=== PATIENT | male | born 1955 | race Caucasian/White ===

== ENCOUNTER 2024-06-10 07:43 | Inpatient (IN) | payer MEDICARE, MEDICAID, SELFPAY ==
[2024-06-10] VITALS (23 sets, daily range): BP systolic 117–145; BP diastolic 42–74; PULSE 69–105; RESP 11–20; TEMP 36.6–36.9; O2SAT 94–100; BMI 32.4
--- NOTE | ~2024-06-10 | CT_ITS ---
EXAMINATION: CT chest abdomen pelvis w con DATE: 06/10/2024 10:08 INDICATION: Abdominal pain. Abnormal chest radiograph. TECHNIQUE: Computed tomography (CT) of the chest, abdomen, and pelvis was performed without intraveno us contrast. Automated exposure control and iterative reconstruction technique were employed. The dos e-length product was 701.48 mGy-cm. COMPARISON: Chest single view 06/10/2024 FINDINGS: CHEST CT: There is mild emphysema. There is mild atelectasis in the lungs. No pleural effusion. The heart size is normal. There are coronary artery calcifications. No pericardial effusion. There is ectasia of asc ending aorta measuring 4.9 cm. There is severe cervical spondylosis and mild thoracic spondylosis. ABDOMEN/PELVIS CT: There is a 6 mm cyst in the liver. The gallbladder and spleen are normal. There is wall thickening of the distal stomach and proximal duodenum with surrounding fat stranding. There is a diverticulum of the proximal duodenum. The pancreas, adrenal glands, and kidneys are normal. There are no dilated loo ps of bowel. The appendix is normal. There are no pathologically enlarged lymph nodes. Abdominal aort a is normal in caliber. 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 Th ere is no free intraperitoneal fluid. There is severe lower lumbar spondylosis. IMPRESSION: 1. Wall thickening of the distal stomach and proximal duodenum, likely peptic ulcer disease. 2. 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 Reviewed, dictated and finalized at location A. IMPRESSION: 1. Wall thickening of the distal stomach and proximal duodenum, likely peptic u lcer disease. 2. 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
--- NOTE | ~2024-06-10 | XR_ITS ---
Portable chest x-ray Comparison: None Clinical History: Weakness Findings: Minimal bibasilar haziness noted, nonspecific. Cardiomediastinal silhouette is mildly pro minent, especially the ascending aortic contour. Bones and soft tissues are unremarkable. Impression: Minimal nonspecific bibasilar haziness. Prominent ascending aortic contour may be related to patient positioning. Consider chest CT to more d efinitively exclude aneurysm, as indicated. Reviewed, dictated and finalized at location . Impression: Minimal nonspecific bibasilar haziness. Prominent ascending aortic contour may be related to patient positioning. Consi natalya chest CT to more definitively exclude aneurysm, as indicated.
--- NOTE | 2024-06-10 08:08 | ECG_ITS ---
Test Date: 2024-06-10 08:24:22 Measurements Intervals [place] Rate: 88 P: 61 MA: 151 QRS: -29 QRSD: 99 T: 67 QT: 374 QTc: 455 Interpretive Statements SINUS RHYTHM LEFT AXIS DEVIATION [QRS AXIS < -20] BORDERLINE ECG No previous ECG available for comparison Electronically Signed On 06-10-2024 14:31:46 CDT by Dallas Barker M.D.
[2024-06-10 08:39] LABS: Glucose Point of Care 118 mg/dl (65-105)
[2024-06-10 08:44] LABS: Basophils Percent Auto 0.1 % (0.2-1.2); Immature Granulocyte Absolute 0.18 K/mm3 (0.00-0.031); Immature Granulocyte Percent A 1.3 % (0-0.5); Lymphocytes Absolute Auto 1.54 K/mm3 (0.9-3.2); Lymphocytes Percent Auto 10.7 % (18.3-44.2); Mean Corpuscular HGB Conc 31.1 g/dl (32-36); Mean Corpuscular Hemoglobin 27.9 pg (26-34); Mean Corpuscular Volume 89.7 fl (80-100); Mean Platelet Volume 11.3 fl (7.4-10.4); Monocytes Absolute Auto 0.8 K/mm3 (0.1-0.6); Monocytes Percent Auto 5.4 % (2.6-8.5); Neutrophils Absolute Auto 11.9 K/mm3 (1.3-6.7); Neutrophils Percent Auto 82.5 % (45.5-73.1); Nucleated Red Blood Cells Perc 0.3 % (0.0-0.2); Platelet Count Result 400 k/mm3 (150-375); Red Blood Count 2.33 M/mm3 (4.6-6.20); Red Cell Distribution Width 15.4 % (11.5-14.5); White Blood Count 14.4 K/mm3 (4.5-10.0)
[2024-06-10 08:49] LABS: Hematocrit 20.9 % (42.0-52.0); Hemoglobin 6.5 g/dL (14.0-18.0)
[2024-06-10 08:54] LABS: Lactic Acid Reflex 1.6 mmol/L (0.7-2.0)
[2024-06-10 08:55] LABS: Alanine Aminotransferase 16 U/L (6-50); Albumin Level 3.2 g/dL (3.5-5.1); Alkaline Phosphatase 110 U/L (38-126); Anion Gap 6 mmol/L (4-12); Aspartate Amino Transferase 29 U/L (17-59); Bilirubin,Total 0.6 mg/dL (0.2-1.3); Blood Urea Nitrogen 18 mg/dL (9-20); Calcium 9.1 mg/dL (8.4-10.2); Carbon Dioxide 27 mmol/L (22-30); Chloride 101 mmol/L (98-107); Estimated CRCL calculation 64 ml/min; Estimated Glomerular Filt Rate > 60; Glucose 123 mg/dL (65-110); Potassium 3.5 mmol/L (3.4-5.0); Sodium 134 mmol/L (137-145)
[2024-06-10 08:56] LABS: INR 1.2; Partial Thromboplastin Time 26.3 Seconds (22.3-36.8); Prothrombin Time 15.4 Seconds (11.1-14.7)
--- NOTE | 2024-06-10 09:36 | ED_ITS ---
HPI - Weakness General Chief complaint: Weakness <IFEOMA Abdi Last Filed: 06/10/24 12:58> Stated complaint: bed bugs , sickness <IFEOMA Abdi Last Filed: 06/10/24 12:58> Time Seen by Provider: 06/10/24 08:57 <IFEOMA Abdi Last Filed: 06/10/24 12:58> Source: patient <IFEOMA Abdi Last Filed: 06/10/24 12:58> Mode of arrival: ambulatory <IFEOMA Abdi Filed: 06/10/24 12:58> Limitations: no limitations <IFEOMA Abdi Last Filed: 06/10/24 12:58> History of Present Illness HPI Narrative: Patient is a 68-year-old male who presents the ED with report of weakness. Patient reports he has been feeling weak for the last few weeks. He also complains of diffuse pain throughout his upper abdomen and pain in his extremities for the past few days. States his last bowel movement was a few days ago and painful, but otherwise normal. Denies rectal bleeding or melena. Presented to the ED with visible live bed bugs. Patient has numerous scabs to extremities from itching. States this has been ongoing for the past few days. Also reports cough which he relates to hay fever. Denies CP, SOB, fevers. <IFEOMA Abdi Last Filed: 06/10/24 12:58> Related Data Home medications: Home Medications Medication Instructions Recorded Confirmed No Home Medications 06/10/24 06/10/24 <IFEOMA Abdi Last Filed: 06/10/24 12:58> Allergies/Adverse reactions: Allergies Allergy/AdvReac Type Severity Reaction Status Date / Time penicillin G Allergy Unknown Unknown Verified 06/10/24 13:00 NSAIDS (Non-Steroidal AdvReac Unknown gi bleed Verified 06/10/24 13:00 Anti-Inflamma <IFEOMA Abdi Last Filed: 06/10/24 12:58> Review of Systems Review of Systems: All systems reviewed & are unremarkable except as noted in HPI. <Tanya Li PA-C - Last Filed: 06/10/24 12:58> All systems reviewed & are unremarkable except as noted in HPI and below <Tanya Li PA-C - Last Filed: 06/10/24 12:58> [facility] Family History Family History: Family History (Updated 06/10/24 @ 21:05 by Sully Hill RN) Other Unknown family medical history <Tanya Li PA-C - Last Filed: 06/10/24 12:58> Social History Social History: Social History Smoking status: Current every day smoker Tobacco type: cigarettes Additional smoking assessment comments: unsure how much Alcohol intake: former Substance use: never Substance use type: does not use Do You Feel Safe in your Home?: Yes Lack of Transportation: No Lack of Food: Never True Current Housing: I Have Housing Concerned About Future Housing: No Difficulty Paying Gas/Electric Bills: No Difficulty Paying for Meds: No Currently Unemployed: No Education: High School Diploma/GED Difficulty w/ Childcare or Family Care: No Spiritual care concerns: No <Tanya Li PA-C - Last Filed: 06/10/24 12:58> Exam Narrative: GENERAL: Appears older than stated age, disheveled appearing, intermittently moaning in pain. HEAD: Normocephalic, atraumatic. RESPIRATORY: Airway patent, respirations nonlabored. Clear to auscultation bilaterally, no rales, rhonchi, wheezing. Occasional coughing on exam. CARDIOVASCULAR: Borderline tachycardic with regular rhythm without murmurs, rubs, or gallops. ABDOMINAL: Soft, diffuse pain throughout abdomen, no significant focal tendernes s, nondistended. Normoactive BS. MUSCULOSKELETAL: Moves all extremities. No gross deformities. RECTAL: Normal external genitalia. No obvious hemorrhoids. Normal rectal tone. Stool light brown/yellow, guaiac negative. SKIN: Warm, dry. Innumerable scabs to face, neck, arms, legs, back, buttocks. NEURO: A&O X3. Speech clear. Cranial nerves II-XII grossly intact. No ataxic movements. PSYCHIATRIC: Appropriate mood and affect. Normal interaction. <Tanya Li PA-C - Last Filed: 06/10/24 12:58> Course SYSTEMS TESTING LABORATORY TECHNICIAN/PA Physician Supervision This visit was performed by both a physician and an APC. I performed all aspects of the MDM as documented. <Syd Rivera MD - Last Filed: 06/10/24 21:36> Vital Signs Vital signs: Vital Signs Temperature 97.9 F 06/10/24 07:58 Pulse Rate 100 06/10/24 07:58 Respiratory Rate 18 06/10/24 07:58 Blood Pressure 145/62 H 06/10/24 07:58 Pulse Oximetry 100 06/10/24 07:58 Oxygen Delivery Room Air 06/10/24 07:58 Temperature 97.9 F 06/10/24 20:59 Pulse Rate 89 06/10/24 20:59 Respiratory Rate 20 06/10/24 20:59 Blood Pressure 127/69 06/10/24 20:59 Pulse Oximetry 99 06/10/24 20:59 Oxygen Delivery Room Air 06/10/24 18:15 <Tanya Li PA-C - Last Filed: 06/10/24 12:58> Vital Signs Temperature 97.9 F 06/10/24 07:58 Pulse Rate 100 06/10/24 07:58 Respiratory Rate 18 06/10/24 07:58 Blood Pressure 145/62 H 06/10/24 07:58 Pulse Oximetry 100 06/10/24 07:58 Oxygen Delivery Room Air 06/10/24 07:58 Temperature 97.9 F 06/10/24 20:59 Pulse Rate 89 06/10/24 20:59 Respiratory Rate 20 06/10/24 20:59 Blood Pressure 127/69 06/10/24 20:59 Pulse Oximetry 99 06/10/24 20:59 Oxygen Delivery Room Air 06/10/24 18:15 <Syd Rivera MD - Last Filed: 06/10/24 21:36> MDM - Weakness MDM Narrative Medical decision making narrative: Patient presented to ED with weakness, abdominal pain, extremity pain. Found to have bedbugs upon arrival. Poor living condition, states he lives in a home in [place], [place]. Vital signs are otherwise stable. Patient is afebrile here. Oxygen stable on room air. CBC with white blood cell count of 14.4. Hemoglobin critically low at 6.5. Hematocrit 20.9. No records to compare to. Normocytic. Patient denies any recent bleeding, rectal bleeding, melena. D enies ever being told his Hgb is low. Will obtain type and screen and order PRBC as patient is acutely symptomatic. JHON was performed in the ED, no evidence of bleeding, stool brown in color, stool guaiac negative. CMP is unremarkable. Stable kidney function. Stable electrolytes. Blood glucose within normal range. Lactic acid 1.6. Viral swabs negative. UA consistent with infection. Will Tx. Chest x-ray with subtle haziness, possible enlarged aortic silhouette. Will obtain further imaging and include abdomen to rule out further process. CT of chest / abdomen/pelvis showing evidence of likely PUD, also shows ectasia of ascending aorta, no aneurysm/dissection. Protonix given in the ED. Will start gtt. Patient will be admitted for further evaluation and GI workup. Discussed case with Dr. Martinez, GI, will consult. Will also consult for care coordination given poor living situation. Discussed case with Aba Antunez NP, hospitalist, accepted patient for admission. Patient in agreement with plan. <IFEOMA Abdi Last Filed: 06/10/24 12:58> Medical Records Attestation: I reviewed the patient's medical records. <IFEOMA Abdi Filed: 06/10/24 12:58> Lab Data Attestation: I reviewed the patient's lab results. <IFEOMA Abdi Last Filed: 06/10/24 12:58> Result diagrams: 06/10/24 08:32 06/10/24 08:32 <IFEOMA Abdi Last Filed: 06/10/24 12:58> Labs: Lab Results 06/10/24 06/10/24 06/10/24 Range/Units 08:20 08:32 10:53 WBC 14.4 H (4.5-10.0) K/mm3 RBC 2.33 L (4.6-6.20) M/mm3 Hgb 6.5 L* (14.0-18.0) g/dL Hct 20.9 L* (42.0-52.0) % MCV 89.7 (80-100) fl MCH 27.9 (26-34) pg MCHC 31.1 L (32-36) g/dl RDW 15.4 H (11.5-14.5) % Plt Count 400 H (150-375) k/mm3 MPV 11.3 H (7.4-10.4) fl Immature Gran % (Auto) 1.3 H (0-0.5) % Neut % (Auto) 82.5 H (45.5-73.1) % Lymph % (Auto) 10.7 L (18.3-44.2) % Jones % (Auto) 5.4 (2.6-8.5) % Eos % (Auto) 0.0 (0-4.4) % Baso % (Auto) 0.1 L (0.2-1.2) % Lymph # (Auto) 1.54 (0.9-3.2) K/mm3 Jones # (Auto) 0.8 H (0.1-0.6) K/mm3 Eos # (Auto) 0.0 (0-0.3) K/mm3 Baso # (Auto) 0.0 (0.0-0.1) K/mm3 Abs Immat Gran (auto) 0.18 H (0.00-0.031) K/mm3 Absolute Neuts (auto) 11.9 H (1.3-6.7) K/mm3 Absolute Nucleated RBC 0.040 H (0.0-0.012) K/mm3 Nucleated RBC % 0.3 H (0.0-0.2) % Absolute Retic 0.11 H (0.02-0.10) 10^6/uL Percent Retic 4.62 H (0.7-4.3) % Immature Retic Fraction 30.7 H (3.0-15.9) % Retic Hgb Content 24.1 L (28.2-36.6) pg PT 15.4 H (11.1-14.7) Seconds INR 1.2 APTT 26.3 (22.3-36.8) Seconds Sodium 134 L (137-145) mmol/L Potassium 3.5 (3.4-5.0) mmol/L Chloride 101 (98-107) mmol/L Carbon Dioxide 27 (22-30) mmol/L Anion Gap 6 (4-12) mmol/L BUN 18 (9-20) mg/dL Creatinine 1.00 (0.7-1.3) mg/dL Estim Creat Clear Calc 64 ml/min Estimated GFR > 60 (59 - ) Glucose 123 H (65-110) mg/dL POC Capillary Glucose 118 H (65-105) mg/dl Lactic Acid 1.6 (0.7-2.0) mmol/L Calcium 9.1 (8.4-10.2) mg/dL Iron 26 L (49-181) ug/dL TIBC 292 (265-497) ug/dL % Saturation 9 L (20-50) % Transferrin 212 (206-381) mg/dL Ferritin 22.40 (11.1-264) ng/mL Total Bilirubin 0.6 (0.2-1.3) mg/dL AST 29 (17-59) U/L ALT 16 (6-50) U/L Alkaline Phosphatase 110 (38-126) U/L NT-Pro-B Natriuret Pep 812 H (19.9-100) pg/mL Total Protein 8.0 (6.3-8.2) g/dL Albumin 3.2 L (3.5-5.1) g/dL Vitamin B12 970.0 H (239-931) pg/mL Folate 18.8 (2.76->20) ng/mL TSH (Reflex) 1.250 (0.465-4.68) uIU/mL Urine Color Dark yellow (Yellow) Urine Appearance Cloudy H (Clear) Urine pH 5.5 (5.0-9.0) Ur Specific [place] > 1.045 H (1.001-1.035) Urine Protein 2+ H (Negative) mg/dL Urine Glucose (UA) Negative (Negative) mg/dL Urine Ketones Trace H (Negative) mg/dL Ur Blood (Man) Negative (Negative) Urine Nitrate Positive H (Negative) Urine Bilirubin 1+ H (Negative) Urine Urobilinogen 2.0 H (<2.0) mg/dL Add Ur Microanalysis Reviewed Leukocyte Esterase Rfl 2+ H (Negative) MONIQUE/UL Urine RBC 6-10 H (0-2) /hpf Urine WBC >100 H (0-3) /hpf Ur Squamous Epith Cells None seen (Few) /hpf Urine Bacteria 4+ H /hpf Urine Casts >20 Hyaline Casts Present (None) /lpf Urine Opiates Screen Negative (Negative) Urine Methadone Screen Negative (Negative) Ur Barbiturates Screen Negative (Negative) Ur Phencyclidine Scrn Negative (Negative) Ur Amphetamine Screen Negative (Negative) U Benzodiazepines Scrn Negative (Negative) Urine Cocaine Screen Negative (Negative) U Cannabinoids Screen Positive A (Negative) Ethyl Alcohol < 10 (<10) mg/dL Influenza A (RT-PCR) Negative (Negative) Influenza B (RT-PCR) Negative (Negative) SARS-CoV-2 RNA (RT-PCR) Negative (Negative) Blood Type O Positive Antibody Screen Negative Crossmatch See Detail <Tanya Li PA-C - Last Filed: 06/10/24 12:58> Lab Results 06/10/24 06/10/24 06/10/24 Range/Units 08:20 08:32 10:53 WBC 14.4 H (4.5-10.0) K/mm3 RBC 2.33 L (4.6-6.20) M/mm3 Hgb 6.5 L* (14.0-18.0) g/dL Hct 20.9 L* (42.0-52.0) % MCV 89.7 (80-100) fl MCH 27.9 (26-34) pg MCHC 31.1 L (32-36) g/dl RDW 15.4 H (11.5-14.5) % Plt Count 400 H (150-375) k/mm3 MPV 11.3 H (7.4-10.4) fl Immature Gran % (Auto) 1.3 H (0-0.5) % Neut % (Auto) 82.5 H (45.5-73.1) % Lymph % (Auto) 10.7 L (18.3-44.2) % Jones % (Auto) 5.4 (2.6-8.5) % Eos % (Auto) 0.0 (0-4.4) % Baso % (Auto) 0.1 L (0.2-1.2) % Lymph # (Auto) 1.54 (0.9-3.2) K/mm3 Jones # (Auto) 0.8 H (0.1-0.6) K/mm3 Eos # (Auto) 0.0 (0-0.3) K/mm3 Baso # (Auto) 0.0 (0.0-0.1) K/mm3 Abs Immat Gran (auto) 0.18 H (0.00-0.031) K/mm3 Absolute Neuts (auto) 11.9 H (1.3-6.7) K/mm3 Absolute Nucleated RBC 0.040 H (0.0-0.012) K/mm3 Nucleated RBC % 0.3 H (0.0-0.2) % Absolute Retic 0.11 H (0.02-0.10) 10^6/uL Percent Retic 4.62 H (0.7-4.3) % Immature Retic Fraction 30.7 H (3.0-15.9) % Retic Hgb Content 24.1 L (28.2-36.6) pg PT 15.4 H (11.1-14.7) Seconds INR 1.2 APTT 26.3 (22.3-36.8) Seconds Sodium 134 L (137-145) mmol/L Potassium 3.5 (3.4-5.0) mmol/L Chloride 101 (98-107) mmol/L Carbon Dioxide 27 (22-30) mmol/L Anion Gap 6 (4-12) mmol/L BUN 18 (9-20) mg/dL Creatinine 1.00 (0.7-1.3) mg/dL Estim Creat Clear Calc 64 ml/min Estimated GFR > 60 (59 - ) Glucose 123 H (65-110) mg/dL POC Capillary Glucose 118 H (65-105) mg/dl Lactic Acid 1.6 (0.7-2.0) mmol/L Calcium 9.1 (8.4-10.2) mg/dL Iron 26 L (49-181) ug/dL TIBC 292 (265-497) ug/dL % Saturation 9 L (20-50) % Transferrin 212 (206-381) mg/dL Ferritin 22.40 (11.1-264) ng/mL Total Bilirubin 0.6 (0.2-1.3) mg/dL AST 29 (17-59) U/L ALT 16 (6-50) U/L Alkaline Phosphatase 110 (38-126) U/L NT-Pro-B Natriuret Pep 812 H (19.9-100) pg/mL Total Protein 8.0 (6.3-8.2) g/dL Albumin 3.2 L (3.5-5.1) g/dL Vitamin B12 970.0 H (239-931) pg/mL Folate 18.8 (2.76->20) ng/mL TSH (Reflex) 1.250 (0.465-4.68) uIU/mL Urine Color Dark yellow (Yellow) Urine Appearance Cloudy H (Clear) Urine pH 5.5 (5.0-9.0) Ur Specific [place] > 1.045 H (1.001-1.035) Urine Protein 2+ H (Negative) mg/dL Urine Glucose (UA) Negative (Negative) mg/dL Urine Ketones Trace H (Negative) mg/dL Ur Blood (Man) Negative (Negative) Urine Nitrate Positive H (Negative) Urine Bilirubin 1+ H (Negative) Urine Urobilinogen 2.0 H (<2.0) mg/dL Add Ur Microanalysis Reviewed Leukocyte Esterase Rfl 2+ H (Negative) MONIQUE/UL Urine RBC 6-10 H (0-2) /hpf Urine WBC >100 H (0-3) /hpf Ur Squamous Epith Cells None seen (Few) /hpf Urine Bacteria 4+ H /hpf Urine Casts >20 Hyaline Casts Present (None) /lpf Urine Opiates Screen Negative (Negative) Urine Methadone Screen Negative (Negative) Ur Barbiturates Screen Negative (Negative) Ur Phencyclidine Scrn Negative (Negative) Ur Amphetamine Screen Negative (Negative) U Benzodiazepines Scrn Negative (Negative) Urine Cocaine Screen Negative (Negative) U Cannabinoids Screen Positive A (Negative) Ethyl Alcohol < 10 (<10) mg/dL Influenza A (RT-PCR) Negative (Negative) Influenza B (RT-PCR) Negative (Negative) SARS-CoV-2 RNA (RT-PCR) Negative (Negative) Blood Type O Positive Antibody Screen Negative Crossmatch See Detail <Syd Rivera MD - Last Filed: 06/10/24 21:36> Imaging Data Attestation: I personally reviewed and interpreted this imaging study as follows: <TanyaIFEOMA Byers Last Filed: 06/10/24 12:58> Radiologist's impression: ITS Impressions Chest X-Ray 06/10/24 08:56 Impression: Minimal nonspecific bibasilar haziness. Prominent ascending aortic contour may be related to patient positioning. Consider chest CT to more definitively exclude aneurysm, as indicated. Chest/Abdomen/Pelvis CT 06/10/24 10:12 IMPRESSION: 1. Wall thickening of the distal stomach and proximal duodenum, likely peptic ulcer disease. 2. 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 <IFEOMA Abdi Last Filed: 06/10/24 12:58> ECG Data EKG #1: Attestation: I personally reviewed and interpreted this ECG as follows: <IFEOMA Abdi Last Filed: 06/10/24 12:58> ECG completion date: 06/10/24 <IFEOMA Abdi Last Filed: 06/10/24 12:58> ECG completion time: 08:24 <IFEOMA Abdi Last Filed: 06/10/24 12:58> EKG Interpretation: normal rate (88), sinus rhythm and non-specific ST changes <IFEOMA Abdi Last Filed: 06/10/24 12:58> Discharge Plan Discharge Clinical Impression: Symptomatic anemia, PUD (peptic ulcer disease), Weakness UTI (urinary tract infection) Qualifiers: Urinary tract infection type: acute cystitis Hematuria presence: with hematuria Qualified Code(s): N30.01 - Acute cystitis with hematuria <IFEOMA Abdi Last Filed: 06/10/24 12:58> Patient Disposition: Still a Patient <IFEOMA Abdi Last Filed: 06/10/24 12:58> Condition: Stable <IFEOMA Abdi Last Filed: 06/10/24 12:58>
[2024-06-10 09:50] LABS: Immature Reticulocyte Fraction 30.7 % (3.0-15.9); Reticulocyte Hemoglobin Conten 24.1 pg (28.2-36.6); Reticulocyte Percent 4.62 % (0.7-4.3); Reticulocytes Absolute 0.11 10^6/uL (0.02-0.10)
[2024-06-10] MEDS: ACETAMINOPHEN 500 MG TABLET 1000 MG PO (09:55)
[2024-06-10] MEDS: PANTOPRAZOLE SODIUM IV 40 MG VIAL IV PUSH ×2 (09:55→20:23)
[2024-06-10 10:03] LABS: Iron 26 ug/dL (49-181)
[2024-06-10 10:07] LABS: Influenza A QL RT-PCR Negative (Negative); Influenza B QL RT-PCR Negative (Negative); SARS-CoV-2 RNA PCR Negative (Negative)
[2024-06-10 10:14] LABS: NT Pro B Type Natriuretic Pept 812 pg/mL (19.9-100); Percent Iron Saturation 9 % (20-50); Transferrin 212 mg/dL (206-381)
[2024-06-10 10:46] LABS: Ethanol < 10 mg/dL (<10)
[2024-06-10 11:14] LABS: Folic Acid 18.8 ng/mL (2.76->20)
[2024-06-10 11:21] LABS: Amphetamine Screen Urine Negative (Negative); Barbiturate Screen Urine Negative (Negative); Benzodiazepines Screen Urine Negative (Negative); Cannabinoid Screen Urine Positive (Negative); Cocaine Screen Urine Negative (Negative); Methadone Screen Urine Negative (Negative); Opiate Screen Urine Negative (Negative); Phencyclidine Screen Urine Negative (Negative)
[2024-06-10 11:26] LABS: Add Urine Microscopic? YES; Appearance Urine Cloudy (Clear); Bacteria Urine 4+ /hpf; Bilirubin Urine 1+ (Negative); Blood Urine Negative (Negative); Color Urine Dark Yellow (Yellow); Glucose Urine UA Negative (Negative); Hyaline Casts Urine Present /lpf; Ketones Urine Trace mg/dL (Negative); Leukocyte Esterase Ur 2+ LEU/UL (Negative); Need Manual Microscopic Reviewed; Nitrate Urine Positive (Negative); Non Pathogenic Casts >20; Protein Urine 2+ mg/dL (Negative); Specific Grav Ur > 1.045 (1.001-1.035); Squamous Epithelial Cell Urine None Seen /hpf (Few); WBC Urine >100 /hpf (0-3); pH Urine 5.5 (5.0-9.0)
[2024-06-10] MEDS: SODIUM CHLORIDE 0.9% IV 250 ML 30 ML IV CONT ×2 (11:35→23:56)
[2024-06-10] MEDS: TUBING, BLOOD PLUM PUMP TUBING 1 EACH XX (11:44)
[2024-06-10] MEDS: PANTOPRAZOLE SODIUM IV 80 MG in SODIUM CHLORIDE 0.9% IV 500 ML 50 MG IV CONT (13:44)
[2024-06-10] MEDS: IRON SUCROSE COMPLEX 400 MG, IRON SUCROSE COMPLEX 100 MG in SODIUM CHLORIDE 0.9% IV 250 ML 78.57 MG IVPB (14:13)
--- NOTE | 2024-06-10 14:45 | ADMGEN ---
This patient, Jimmy Velazquez, was admitted to Medical Room 248-01. Patient/family oriented to hospital policies and general routines including ID bracelet, bed and alarms, visiting hours, pain management, procedures, bathroom and other care routines, personal items, smoking policy, room service/diet, and visiting hours. Information on how to activate the Rapid Response Team has been discussed. Patient/Family are encouraged to report perceived risks to care and to ask questions if they do not understand what they are told or what they should do.
--- NOTE | 2024-06-10 14:48 | PC.NURSE ---
This patient, Jimmy Velazquez, was admitted to Medical Room [facility]- on 06/10/2024 @ 1093. Patient/family oriented to hospital policies and general routines including ID bracelet, bed and alarms, visiting hours, pain management, procedures, bathroom and other care routines, personal items, smoking policy, room service/diet, and visiting hours. Information on how to activate the Rapid Response Team has been discussed. Patient/Family are encouraged to report perceived risks to care and to ask questions if they do not understand what they are told or what they should do.
--- NOTE | 2024-06-10 14:50 | P.HP_ITS ---
H&P: HPI History of Present Illness Date/Time: 06/10/24 14:50 Chief Complaint: Weakness, anemia Narrative: This is a 68-year-old male patient admitted to the hospital through the emergency department with complaints of symptomatic anemia generalized weakness UTI and bed bug infestation. Patient states that he just generally had not been feeling well. He states that he rode the bus from his home in [place] to our facility brought his clothes and his walker. Patient [facility] BuSpar [facility]opram and another mood stabilizer as well as an inhaler for COPD. Patient does not know the dosages or all the names for his medications. Workup in the emergency department revealed critically low hemoglobin and hematocrit of 6.5/20.9, white blood cell elevation at 14.4 platelets [id number] abnormal urinalysis indicative of urinary tract infection and dehydration. Patient received IV pantoprazole, IV antibiotics Rocephin. Gastroenterology was consulted placing orders for bowel prep with plans for EGD and colonoscopy tomorrow. Patient had very large bedbug infestation with numerous live bugs noted in the emergency department. He has innumerable scabs on is exposed skin arms legs face etc. ordered permethrin topical x1. Patient allowed regular diet but NPO after midnight. He is admitted on telemetry due to significantly low H&H. Patient was ordered 2 units blood transfusion from the emergency department. Will obtain H&H after transfusion and every 6 hours throughout the night. Blood cultures and urine culture in process. Ordered nebulizer treatments and a dose of Lasix as patient was exhibiting dyspnea on examination. Nonproductive and no significant wheezing noted. Nicotine patch ordered as patient is a heavy smoker. Review of Systems Review of Systems: All systems reviewed & are unremarkable except as noted in HPI and below [facility] Family History Family History (Updated 06/10/24 @ 21:05 by Sully Hill RN) Other Unknown family medical history Social History Social History Smoking status: Current every day smoker Tobacco type: cigarettes Additional smoking assessment comments: unsure how much Alcohol intake: former Substance use: never Substance use type: does not use Do You Feel Safe in your Home?: Yes Lack of Transportation: No Lack of Food: Never True Current Housing: I Have Housing Concerned About Future Housing: No Difficulty Paying Gas/Electric Bills: No Difficulty Paying for Meds: No Currently Unemployed: No Education: High School Diploma/GED Difficulty w/ Childcare or Family Care: No Spiritual care concerns: No Meds Home Medications and Allergies Home Medications Medication Instructions Recorded Confirmed Type No Home Medications 06/10/24 06/10/24 History Allergies Allergy/AdvReac Type Severity Reaction Status Date / Time penicillin G Allergy Unknown Unknown Verified 06/10/24 13:00 NSAIDS (Non-Steroidal AdvReac Unknown gi bleed Verified 06/10/24 13:00 Anti-Inflamma Vital Signs Vital Signs - 24 hr 06/10/24 07:58 06/10/24 08:21 06/10/24 09:54 Temperature 36.6 C Pulse Rate 100 83 105 H Respiratory Rate 18 20 Blood Pressure 145/62 H 138/65 Pulse Oximetry 100 98 Oxygen Delivery Room Air 06/10/24 10:33 06/10/24 11:33 06/10/24 11:50 Temperature 36.8 C 36.9 C Pulse Rate 81 81 76 Respiratory Rate 19 16 16 Blood Pressure 118/56 L 132/58 L 123/52 L Pulse Oximetry 100 100 100 Oxygen Delivery 06/10/24 11:45 06/10/24 12:41 06/10/24 12:50 Temperature 36.8 C 36.7 C Pulse Rate 77 73 78 Respiratory Rate 17 19 19 Blood Pressure 132/58 L 118/52 L 124/74 Pulse Oximetry 98 98 100 Oxygen Delivery 06/10/24 13:50 06/10/24 14:11 06/10/24 14:12 Temperature 36.8 C 36.8 C 36.8 C Pulse Rate 72 69 70 Respiratory Rate 11 L 12 16 Blood Pressure 124/67 124/67 124/67 Pulse Oximetry 100 100 100 Oxygen Delivery Exam Narrative: GENERAL: Appears older than stated age, disheveled appearing with multiple scabs HEAD: Normocephalic, atraumatic. RESPIRATORY: Airway patent, respirations mildly dyspneic/deep. Clear to auscultation bilaterally, no rales, rhonchi, wheezing. Occasional nonproductive coughing on exam. CARDIOVASCULAR: Regular rate and rhythm without murmurs, rubs, or gallops. ABDOMINAL: Soft, diffuse mild tenderness throughout abdomen, no significant focal tenderness, nondistended. Normoactive BS. MUSCULOSKELETAL: Moves all extremities. No gross deformities. RECTAL: Completed in Emergency Department SKIN: Warm, dry. Innumerable scabs to face, neck, arms, legs, back, buttocks. NEURO: A&O X3. Speech clear. Cranial nerves II-XII grossly intact. No ataxic movements. PSYCHIATRIC: Appropriate mood and affect. Normal interaction. H&P: Results Labs Labs: Short CBC 06/10/24 Range/Units 08:32 WBC 14.4 H (4.5-10.0) K/mm3 Hgb 6.5 L* (14.0-18.0) g/dL Hct 20.9 L* (42.0-52.0) % Plt Count 400 H (150-375) k/mm3 BMP 06/10/24 08:32 Sodium 134 L Potassium 3.5 Chloride 101 Carbon Dioxide 27 BUN 18 Creatinine 1.00 Glucose 123 H Calcium 9.1 Liver Function 06/10/24 Range/Units 08:32 Total Bilirubin 0.6 (0.2-1.3) mg/dL AST 29 (17-59) U/L ALT 16 (6-50) U/L Alkaline Phosphatase 110 (38-126) U/L Albumin 3.2 L (3.5-5.1) g/dL Urine 06/10/24 Range/Units 10:53 Urine Color Dark yellow (Yellow) Urine Appearance Cloudy H (Clear) Urine pH 5.5 (5.0-9.0) Ur Specific [place] > 1.045 H (1.001-1.035) Urine Protein 2+ H (Negative) mg/dL Urine Glucose (UA) Negative (Negative) mg/dL Pulse Oximetry SpO2 results: 98-100% on room air Attestation: I personally reviewed and interpreted this pulse oximetry as follows: Interpretation: no need for supplemental oxygenation at this time ECG Attestation: I personally reviewed and interpreted this ECG as follows: ECG completion date: 06/10/24 ECG completion time: 08:24 Prior ECG tracings: not available for review Interpretation: Sinus rhythm with left axis deviation, Rate 88, PRN 151,QRSd 99, QTC 455, QRS axis -29 Imaging Chest x-ray: Radiologist's impression: Portable chest x-ray Comparison: None Clinical History: Weakness Findings: Minimal bibasilar haziness noted, nonspecific. Cardiomediastinal silhouette is mildly prominent, especially the ascending aortic contour. Bones and soft tissues are unremarkable. Impression: Minimal nonspecific bibasilar haziness. Prominent ascending aortic contour may be related to patient positioning. Consider chest CT to more definitively exclude aneurysm, as indicated. Reviewed, dictated and finalized at location . CT chest/abdomen/pelvis: Radiologist's impression: EXAMINATION: CT chest abdomen pelvis w con DATE: 06/10/2024 10:08 INDICATION: Abdominal pain. Abnormal chest radiograph. TECHNIQUE: Computed tomography (CT) of the chest, abdomen, and pelvis was performed without intravenous contrast. Automated exposure control and iterative reconstruction technique were employed. The dose-length product was 701.48 mGy- cm. COMPARISON: Chest single view 06/10/2024 FINDINGS: CHEST CT: There is mild emphysema. There is mild atelectasis in the lungs. No pleural effusion. The heart size is normal. There are coronary artery calcifications. No pericardial effusion. There is ectasia of ascending aorta measuring 4.9 cm. There is severe cervical spondylosis and mild thoracic spondylosis. ABDOMEN/PELVIS CT: There is a 6 mm cyst in the liver. The gallbladder and spleen are normal. There is wall thickening of the distal stomach and proximal duodenum with surrounding fat stranding. There is a diverticulum of the proximal duodenum. The pancreas, adrenal glands, and kidneys are normal. There are no dilated loops of bowel. The appendix is normal. There are no pathologically enlarged lymph nodes. Abdominal aorta is normal in caliber. 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 There is no free intraperitoneal fluid. There is severe lower lumbar spondylosis. IMPRESSION: 1. Wall thickening of the distal stomach and proximal duodenum, likely peptic ulcer disease. 2. 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 Reviewed, dictated and finalized at location A. Assessment and Plan Assessment and plan (1) Symptomatic anemia: Code(s): D64.9 - Anemia, unspecified Status: Acute Assessment and Plan: Patient to ER with complaint of weakness H&H 6.5/20.9 Patient given 2 units PRBC ordered by the ER CT scan chest abdomen pelvis shows likely peptic ulcer disease Digital rectal exam in ER hemoccult negative GI consulted and plans EGD and colonoscopy tomorrow NPO after midnight Bowel prep already ordered (2) UTI (urinary tract infection): Qualifiers: Hematuria presence: with hematuria Urinary tract infection type: acute cystitis Qualified Code(s): N30.01 - Acute cystitis with hematuria Code(s): N39.0 - Urinary tract infection, site not specified Status: Acute Assessment and Plan: Urinalysis cloudy with specific gravity greater than 1.0452+ protein trace ketones positive nitrates 1+ bilirubin 2+ uro bili gin 2+ leukocyte esterase 6- 10 red cells greater than 100 white cells no squamous 4+ bacteria greater than 20 urine hyaline casts Cultures pending Given Rocephin in ER and will be continued (3) Weakness: Code(s): R53.1 - Weakness Status: Acute Assessment and Plan: See 1 and 2 above (4) Gastric ulcer: Code(s): K25.9 - Gastric ulcer, unspecified as acute or chronic, without hemorrhage or perforation Status: Acute Assessment and Plan: See 1 above (5) Infestation by bed bug: Code(s): B88.8 - Other specified infestations Status: Acute Assessment and Plan: Bed bug infestation identified in ER Multiple scabs all over exposed skin Patient cleaned and changed in ER Will order permethrin 5% application x1 (6) History of COPD: Code(s): Z87.09 - Personal history of other diseases of the respiratory system Status: Acute Assessment and Plan: Dyspnea noted on exam Ordered Duonebs No pneumonia on imaging No active wheezing noted Nicotine patch ordered as patient continues to smoke heavily (7) Nicotine dependence: Code(s): F17.200 - Nicotine dependence, unspecified, uncomplicated Status: Acute Assessment and Plan: Nicotine patch ordered Quality VTE Prophylaxis VTE prophylaxis: mechanical ordered If No VTE Prophylaxis Answer both mechanical and pharmacologic: Reason no pharmacologic proph: medical contraindication active bleeding/bleeding risk Unable to complete medication reconciliation as patient gets medications [place] [facility] and no way to contact family or [facility] pharmacy for more information. Hospitalist [facility] Advance Care Plan I have confirmed that the patient's Advanced Care Plan is present, code status is documented, or surrogate decision maker is listed in patient medical record.: Yes Medication Reconciliation I have utilized all available resources to obtain, update and review the patients current medications (includes all prescriptions, OTC, herbals, cannabis, and nutritional supplements).: Yes
--- NOTE | 2024-06-10 15:35 | WPDGICN ---
Assessment and Plan Assessment and plan (1) Symptomatic anemia: Code(s): D64.9 - Anemia, unspecified Status: Acute Assessment and Plan: never had scopes, will proceed with egd and colonoscopy after bowel prep also noted possible PUD by ct scan, he denies abdominal pain started on ppi (2) Infestation by bed bug: Code(s): B88.8 - Other specified infestations Status: Acute Assessment and Plan: treated by primary team (3) Abnormal CT scan, stomach: Code(s): R93.3 - Abnormal findings on diagnostic imaging of other parts of digestive tract Status: Acute Assessment and Plan: will assess with egd, possible ulcer (4) COPD (chronic obstructive pulmonary disease): Code(s): J44.9 - Chronic obstructive pulmonary disease, unspecified Status: Acute (5) UTI (urinary tract infection): Qualifiers: Hematuria presence: with hematuria Urinary tract infection type: acute cystitis Qualified Code(s): N30.01 - Acute cystitis with hematuria Code(s): N39.0 - Urinary tract infection, site not specified Status: Acute Assessment and Plan: on abx (6) Weakness: Code(s): R53.1 - Weakness Status: Acute Assessment and Plan: partially from symptomatic anemia GI Consult Note Consult date/time: 06/10/24 15:35 Reason for consult: symptomatic anemia HPI: Jimmy Velazquez is a 68 year old male with history of COPD, he has been feeling tired. Also h/o psychological disorder on meds that gets from [facility]. ER labs showed significant anemia with hemoglobin 6.5, white blood cell elevation at 14.4 platelets [id number], also UA c/w urinary tract infection. Patient received IV pantoprazole, IV Rocephin. Also noted large bedbug infestation with numerous live bugs noted in the emergency department. He has innumerable scabs on is exposed skin arms legs face. Never had scopes, denies overt gib. Review of Systems Constitutional: Constitutional: Reports weakness Eyes: Eyes: Denies blurry vision ENT: Reports Normal hearing present Cardiovascular: Cardiovascular: Denies chest pain Respiratory: Respiratory: Denies cough Gastrointestinal: Gastrointestinal: Denies hematochezia Genitourinary: Genitourinary: Denies hematuria Musculoskeletal: Musculoskeletal: Denies neck pain Integumentary/Breasts: Skin/Breast: Reports dry skin, Reports pruritus and Reports rash Neurologic: Denies confusion Psychiatric: Psychiatric: Denies behavioral changes [facility] Past Medical History Medical History (Updated 06/11/24 @ 07:56 by Ty Nolan MD) Abnormal CT scan, stomach COPD (chronic obstructive pulmonary disease) Family History Family History (Updated 06/10/24 @ 21:05 by Sully Hill RN) Other Unknown family medical history Social History Social History Smoking status: Current every day smoker Tobacco type: cigarettes Additional smoking assessment comments: unsure how much Alcohol intake: former Substance use: never Substance use type: does not use Do You Feel Safe in your Home?: Yes Lack of Transportation: No Lack of Food: Never True Current Housing: I Have Housing Concerned About Future Housing: No Difficulty Paying Gas/Electric Bills: No Difficulty Paying for Meds: No Currently Unemployed: No Education: High School Diploma/GED Difficulty w/ Childcare or Family Care: No Spiritual care concerns: No Meds Home Medications and Allergies Home Medications Medication Instructions Recorded Confirmed Type No Home Medications 06/10/24 06/10/24 History Allergies Allergy/AdvReac Type Severity Reaction Status Date / Time penicillin G Allergy Unknown Unknown Verified 06/10/24 13:00 NSAIDS (Non-Steroidal AdvReac Unknown gi bleed Verified 06/10/24 13:00 Anti-Inflamma Vital Signs Vital Signs - 24 hr 06/10/24 07:58 06/10/24 08:21 06/10/24 09:54 Temperature 97.9 F Pulse Rate 100 83 105 H Respiratory Rate 18 20 Blood Pressure 145/62 H 138/65 Pulse Oximetry 100 98 Oxygen Delivery Room Air 06/10/24 10:33 06/10/24 11:33 06/10/24 11:50 Temperature 98.2 F 98.5 F Pulse Rate 81 81 76 Respiratory Rate 19 16 16 Blood Pressure 118/56 L 132/58 L 123/52 L Pulse Oximetry 100 100 100 Oxygen Delivery 06/10/24 11:45 06/10/24 12:41 06/10/24 12:50 Temperature 98.2 F 98.1 F Pulse Rate 77 73 78 Respiratory Rate 17 19 19 Blood Pressure 132/58 L 118/52 L 124/74 Pulse Oximetry 98 98 100 Oxygen Delivery 06/10/24 13:50 06/10/24 14:11 06/10/24 14:12 Temperature 98.2 F 98.2 F 98.2 F Pulse Rate 72 69 70 Respiratory Rate 11 L 12 16 Blood Pressure 124/67 124/67 124/67 Pulse Oximetry 100 100 100 Oxygen Delivery Exam Const: General: comfortable and no acute distress Other: disheveled HENMT: Face/Nose/Sinus: Normal nares present Eyes: Sclera: sclerae normal Neck: Neck: supple Resp: Auscultation: clear to auscultation bilaterally Cardio: Rate: regular rate Rhythm: regular rhythm GI: Inspection: non-distended GI Palp: Yes Soft to palpation and No Tenderness to palpation present (GI) Auscultation: normal bowel sounds Skin: Other: multiple scabs, noted bed bugs Neuro: Speech: normal speech Motor exam (neuro): 5/5 motor strength present throughout Extrem: General: normal to inspection Psych: Mental Status: mental status grossly normal Results Labs 06/11/24 05:41 06/11/24 05:41 Labs: Short CBC 06/10/24 Range/Units 08:32 WBC 14.4 H (4.5-10.0) K/mm3 Hgb 6.5 L* (14.0-18.0) g/dL Hct 20.9 L* (42.0-52.0) % Plt Count 400 H (150-375) k/mm3 BMP 06/10/24 08:32 Sodium 134 L Potassium 3.5 Chloride 101 Carbon Dioxide 27 BUN 18 Creatinine 1.00 Glucose 123 H Calcium 9.1 Liver Function 06/10/24 Range/Units 08:32 Total Bilirubin 0.6 (0.2-1.3) mg/dL AST 29 (17-59) U/L ALT 16 (6-50) U/L Alkaline Phosphatase 110 (38-126) U/L Albumin 3.2 L (3.5-5.1) g/dL Urine 06/10/24 Range/Units 10:53 Urine Color Dark yellow (Yellow) Urine Appearance Cloudy H (Clear) Urine pH 5.5 (5.0-9.0) Ur Specific [place] > 1.045 H (1.001-1.035) Urine Protein 2+ H (Negative) mg/dL Urine Glucose (UA) Negative (Negative) mg/dL
[2024-06-10] MEDS: SODIUM CHLORIDE 0.9% IV 250 ML 75 ML (16:24)
[2024-06-10] MEDS: BISACODYL 5 MG TABLET EC 20 MG PO (17:42)
[2024-06-10] MEDS: PERMETHRIN 5% CREAM 60 GM TUBE 1 APPLIC TOPICAL (17:43)
[2024-06-10] MEDS: polyethylene glycoL 3350 238 GM BOTTLE PO (17:43)
[2024-06-10] MEDS: IPRATROPIUM 0.5 MG/ALBUTEROL SULFATE 2.5 MG AMPUL.NEB 3 ML INHALATION ×2 (18:15→19:21)
[2024-06-10] MEDS: FUROSEMIDE INJ 40 MG/4 ML VIAL IV PUSH (18:48)
--- NOTE | 2024-06-10 20:37 | PC.NURSE ---
2014 UPON ENTERING ROOM TO ASSESS THE PATIENT I CHECKED THE PT IV WHERE BLOOD WAS TRANSFUSING. PREVIOUS RN STATED BLOOD SHOULD BE ALMOST FINISHED BUT BAG WAS STILL HALF FULL. I THEN REALIZED THE BLOOD HAD BEEN PLACED ON STANDBY. UNSURE OF HOW LONG THE BLOOD HAD BEEN ON STANDBY OR WHO PLACED THE BLOOD ON STANDBY. AT THIS TIME THE TAR ALERTED THAT THE 4 HOURS ALLOWED TO GIVE THE BLOOD WAS UP. AT THIS TIME I INFORMED MY CHARGE NURSE OF THE ISSUE AND DISCONNECTED THE PATIENT FROM THE BLOOD TRANSFUSION. PT HAS LABS SCHEDULED FOR 2299 FOR HBG AND HCT.
--- NOTE | 2024-06-10 21:03 | PC.NURSE ---
Pt stated that he takes anxiety and depression medication [facility]. Pt is unsure of dosage, names of all his medication. Stated that he takes Buspar as one of his medications.
[2024-06-10 22:35] LABS: Hematocrit 23.4 % (42.0-52.0); Hemoglobin 7.6 g/dL (14.0-18.0)
[2024-06-11] VITALS (21 sets, daily range): BP systolic 94–128; BP diastolic 41–72; PULSE 68–87; RESP 16–20; TEMP 36.5–36.8; O2SAT 95–100
[2024-06-11] MEDS: IPRATROPIUM 0.5 MG/ALBUTEROL SULFATE 2.5 MG AMPUL.NEB 3 ML INHALATION ×5 (00:15→20:19)
[2024-06-11] MEDS: MAGNESIUM CITRATE 300 ML BTL PO (02:07)
[2024-06-11 06:13] LABS: Basophils Percent Auto 0.2 % (0.2-1.2); Eosinophils Absolute Auto 0.1 K/mm3 (0-0.3); Hematocrit 25.7 % (42.0-52.0); Hemoglobin 8.5 g/dL (14.0-18.0); Immature Granulocyte Absolute 0.08 K/mm3 (0.00-0.031); Immature Granulocyte Percent A 0.9 % (0-0.5); Lymphocytes Absolute Auto 1.69 K/mm3 (0.9-3.2); Lymphocytes Percent Auto 18.6 % (18.3-44.2); Mean Corpuscular HGB Conc 33.1 g/dl (32-36); Mean Corpuscular Hemoglobin 29.3 pg (26-34); Mean Corpuscular Volume 88.6 fl (80-100); Mean Platelet Volume 11.3 fl (7.4-10.4); Monocytes Absolute Auto 0.7 K/mm3 (0.1-0.6); Monocytes Percent Auto 7.9 % (2.6-8.5); Neutrophils Absolute Auto 6.5 K/mm3 (1.3-6.7); Neutrophils Percent Auto 71.4 % (45.5-73.1); Nucleated Red Blood Cells Perc 0.3 % (0.0-0.2); Platelet Count Result 353 k/mm3 (150-375); Red Cell Distribution Width 14.8 % (11.5-14.5); White Blood Count 9.1 K/mm3 (4.5-10.0)
--- NOTE | 2024-06-11 06:21 | PC.NURSE ---
PT HAS YET TO COMPLETE BOWEL PREP LIQUIDS AND HAS NOT YET STARTED TO HAVE BOWEL MOVEMENTS. PROVIDER NOTIFIED. ORDER FOR ANOTHER BOTTLE OF MAG CITRATE TO BE GIVEN. EDUCATED PT ON IMPORTANCE OF COMPLETING BOWEL PREP IN ORDER TO GET PROCEDURES.
[2024-06-11 06:25] LABS: Alanine Aminotransferase 13 U/L (6-50); Albumin Level 2.9 g/dL (3.5-5.1); Alkaline Phosphatase 107 U/L (38-126); Anion Gap 8 mmol/L (4-12); Aspartate Amino Transferase 26 U/L (17-59); Bilirubin,Total 0.5 mg/dL (0.2-1.3); Blood Urea Nitrogen 14 mg/dL (9-20); Calcium 8.8 mg/dL (8.4-10.2); Carbon Dioxide 26 mmol/L (22-30); Chloride 102 mmol/L (98-107); Estimated CRCL calculation 63 ml/min; Estimated Glomerular Filt Rate > 60; Glucose 107 mg/dL (65-110); Magnesium 2.3 mg/dL (1.6-2.3); Potassium 3.1 mmol/L (3.4-5.0); Sodium 136 mmol/L (137-145)
[2024-06-11] MEDS: POTASSIUM CHLORIDE INJ 40 MEQ in SODIUM CHLORIDE 0.9% IV 500 ML 130 MEQ IVPB (07:46)
[2024-06-11] MEDS: PANTOPRAZOLE SODIUM IV 40 MG VIAL IV PUSH ×2 (09:48→20:15)
[2024-06-11] MEDS: POTASSIUM CHLORIDE 20 MEQ ER TABLET 60 MEQ PO (09:48)
--- NOTE | 2024-06-11 10:48 | P.PNIM_ITS ---
Progress Note: A&P Assessment and Plan (1) Symptomatic anemia: Code(s): D64.9 - Anemia, unspecified Status: Acute Assessment and Plan: Patient to ER with complaint of weakness H&H 6.5/20.9 Patient given 2 units PRBC ordered by the ER CT scan chest abdomen pelvis shows likely peptic ulcer disease Digital rectal exam in ER hemoccult negative GI consulted and plans EGD and colonoscopy tomorrow NPO after midnight Bowel prep already ordered 06/11: Additional bowel prep necessary, EGD and colonoscopy planned for 06/12. Hemoglobin 8.5 status post 3 units PRBC transfused. (2) UTI (urinary tract infection): Qualifiers: Hematuria presence: with hematuria Urinary tract infection type: acute cystitis Qualified Code(s): N30.01 - Acute cystitis with hematuria Code(s): N39.0 - Urinary tract infection, site not specified Status: Acute Assessment and Plan: Urinalysis cloudy with specific gravity greater than 1.0452+ protein trace ketones positive nitrates 1+ bilirubin 2+ uro bili gin 2+ leukocyte esterase 6- 10 red cells greater than 100 white cells no squamous 4+ bacteria greater than 20 urine hyaline casts Cultures pending Given Rocephin in ER and will be continued (3) Weakness: Code(s): R53.1 - Weakness Status: Acute Assessment and Plan: See 1 and 2 above (4) Gastric ulcer: Code(s): K25.9 - Gastric ulcer, unspecified as acute or chronic, without hemorrhage or perforation Status: Acute Assessment and Plan: See 1 above (5) Infestation by bed bug: Code(s): B88.8 - Other specified infestations Status: Acute Assessment and Plan: Bed bug infestation identified in ER Multiple scabs all over exposed skin Patient cleaned and changed in ER Will order permethrin 5% application x1 (6) History of COPD: Code(s): Z87.09 - Personal history of other diseases of the respiratory system Status: Acute Assessment and Plan: Dyspnea noted on exam Ordered Duonebs No pneumonia on imaging No active wheezing noted Nicotine patch ordered as patient continues to smoke heavily (7) Nicotine dependence: Code(s): F17.200 - Nicotine dependence, unspecified, uncomplicated Status: Acute Assessment and Plan: Nicotine patch ordered Plan Discontinued telemetry monitoring Clear liquid diet, further bowel prep EGD and colonoscopy planned for tomorrow Re-initiated medications as known but dosing may be incorrect, use DuoNebs since we do not know COPD controller inhaler Time Spent With Patient Time with patient: Greater than 35 minutes Subjective Date/time seen: 06/11/24 10:48 Interval history: Patient somewhat agitated about being in the hospital and not having someone doing something for him every moment. He expressed frustration and consideration of leaving against medical advice. Explained that he is undergoing bowel prep for EGD and colonoscopy tomorrow. Patient received 3 units of PRBCs for profound anemia without tc GI bleed. Unable to get a full medication reconciliation but we will restart citalopram and BuSpar. Patient does not know what mood stabilizer he takes or what inhaler he uses for COPD. He did receive q.4 hour DuoNebs for 24 hours and is breathing better. This has been moved to q.6. Potassium noted to be low this morning initially ordered IV because we thought he was getting EGD. Stop IV and gave oral whenever we found out he was not getting scope today. Review of Systems Review of Systems: All systems reviewed & are unremarkable except as noted in HPI and below Exam Narrative: GENERAL: Appears older than stated age, disheveled appearing with multiple scabs HEAD: Normocephalic, atraumatic. RESPIRATORY: Airway patent, respirations nonlabored. Clear to auscultation bilaterally, no rales, rhonchi, wheezing. Occasional nonproductive coughing on exam. CARDIOVASCULAR: Regular rate and rhythm without murmurs, rubs, or gallops. ABDOMINAL: Soft, diffuse mild tenderness throughout abdomen, no significant focal tenderness, nondistended. Normoactive BS. MUSCULOSKELETAL: Moves all extremities. No gross deformities. RECTAL: Completed in Emergency Department SKIN: Warm, dry. Innumerable scabs to face, neck, arms, legs, back, buttocks. NEURO: A&O X3. Speech clear. Cranial nerves II-XII grossly intact. No ataxic movements. PSYCHIATRIC: Mildly agitated but redirectable Objective Data Vital Signs Vital Signs: Vital Signs - 24 hr 06/10/24 11:33 06/10/24 11:50 06/10/24 11:45 Temperature 36.8 C 36.9 C 36.8 C Pulse Rate 81 76 77 Respiratory Rate 16 16 17 Blood Pressure 132/58 L 123/52 L 132/58 L Pulse Oximetry 100 100 98 Oxygen Delivery Fraction of Inspired Oxygen 06/10/24 12:41 06/10/24 12:50 06/10/24 13:50 Temperature 36.7 C 36.8 C Pulse Rate 73 78 72 Respiratory Rate 19 19 11 L Blood Pressure 118/52 L 124/74 124/67 Pulse Oximetry 98 100 100 Oxygen Delivery Fraction of Inspired Oxygen 06/10/24 14:11 06/10/24 14:12 06/10/24 15:16 Temperature 36.8 C 36.8 C Pulse Rate 69 70 Respiratory Rate 12 16 Blood Pressure 124/67 124/67 Pulse Oximetry 100 100 Oxygen Delivery Room Air Fraction of Inspired Oxygen 06/10/24 16:21 06/10/24 16:00 06/10/24 18:15 Temperature 36.8 C Pulse Rate 88 88 79 Respiratory Rate 14 20 Blood Pressure 124/42 L Pulse Oximetry 94 Oxygen Delivery Fraction of Inspired Oxygen 06/10/24 18:25 06/10/24 18:15 06/10/24 19:23 Temperature Pulse Rate 82 83 Respiratory Rate 20 20 Blood Pressure Pulse Oximetry 95 Oxygen Delivery Room Air Fraction of Inspired Oxygen 06/10/24 16:37 06/10/24 17:37 06/10/24 18:37 Temperature 36.8 C 36.9 C 36.7 C Pulse Rate 87 73 85 Respiratory Rate 12 14 16 Blood Pressure 119/58 L 145/68 H 117/63 Pulse Oximetry 97 96 100 Oxygen Delivery Fraction of Inspired Oxygen 06/10/24 19:29 06/10/24 20:59 06/10/24 20:00 Temperature 36.6 C Pulse Rate 80 89 Respiratory Rate 20 20 Blood Pressure 127/69 Pulse Oximetry 99 Oxygen Delivery Room Air Fraction of Inspired Oxygen 06/11/24 00:16 06/11/24 00:16 06/11/24 00:30 Temperature 36.7 C 36.8 C Pulse Rate 86 80 83 Respiratory Rate 18 16 16 Blood Pressure 105/52 L 116/51 L Pulse Oximetry 100 100 Oxygen Delivery Fraction of Inspired Oxygen 06/11/24 01:30 06/11/24 02:30 06/10/24 20:00 Temperature 36.7 C 36.8 C Pulse Rate 82 79 85 Respiratory Rate 18 18 Blood Pressure 109/49 L 94/41 L Pulse Oximetry 100 99 Oxygen Delivery Fraction of Inspired Oxygen 06/11/24 00:00 06/11/24 03:30 06/11/24 04:33 Temperature 36.8 C 36.7 C Pulse Rate 82 79 82 Respiratory Rate 18 16 Blood Pressure 122/62 100/44 L Pulse Oximetry 100 100 Oxygen Delivery Fraction of Inspired Oxygen 06/11/24 04:37 06/11/24 04:00 06/11/24 05:12 Temperature 36.6 C Pulse Rate 82 82 68 Respiratory Rate 18 20 Blood Pressure 122/62 Pulse Oximetry 95 Oxygen Delivery Fraction of Inspired Oxygen 06/11/24 05:18 06/11/24 00:22 06/11/24 08:00 Temperature Pulse Rate 75 81 87 Respiratory Rate 20 16 Blood Pressure Pulse Oximetry Oxygen Delivery Fraction of Inspired Oxygen 06/11/24 07:55 06/11/24 07:55 06/11/24 07:59 Temperature Pulse Rate 78 77 Respiratory Rate 20 20 Blood Pressure Pulse Oximetry 98 Oxygen Delivery Room Air Fraction of Inspired Oxygen 21 06/11/24 09:48 Temperature Pulse Rate Respiratory Rate Blood Pressure Pulse Oximetry Oxygen Delivery Room Air Fraction of Inspired Oxygen Intake/Output Intake/Output: Intake & Output 06/08/24 06/09/24 06/10/24 06/11/24 23:59 23:59 23:59 23:59 Intake Total 1923.3 350 Output Total 995 500 Balance 928.3 -150 Meds/Results Medications: Active Medications Generic Name Dose Route Start Last Admin Trade Name Freq PRN Reason Stop Dose Admin Acetaminophen 1,000 mg 06/10/24 12:35 Acetaminophen 500 Mg Tablet PO Q6H PRN Mild Pain (1-3) or Fever Albuterol/Ipratropium 3 ml 06/10/24 20:00 06/11/24 07:55 Ipratropium 0.5 Mg/Albuterol Sulfate 2.5 Mg Ampul.Neb 3 Ml INHALATION 3 ml Q4HRT FELISHA Administration Ceftriaxone Sodium 1 gm in 50 mls @ 100 mls/hr 06/11/24 09:00 06/11/24 09:47 Rocephin 1 Gm/Ns 50 Ml IVPB 100 mls/hr Q24H FELISHA Administration Nicotine 1 patch 06/10/24 18:05 06/11/24 10:04 Nicotine (*Pbkc) 21 Mg Patch TRANSDERM Not Given DAILY FELISHA Ondansetron HCl 4 mg 06/10/24 12:35 Ondansetron Inj 4 Mg/2 Ml Vial IV PUSH Q4H PRN Nausea Pantoprazole Sodium 40 mg 06/10/24 21:00 06/11/24 09:48 Pantoprazole Sodium Iv 40 Mg Vial IV PUSH 40 mg Q12HR FELISHA Administration Radiology Results: ITS Impressions Chest X-Ray 06/10/24 08:56 Impression: Minimal nonspecific bibasilar haziness. Prominent ascending aortic contour may be related to patient positioning. Consider chest CT to more definitively exclude aneurysm, as indicated. Chest/Abdomen/Pelvis CT 06/10/24 10:12 IMPRESSION: 1. Wall thickening of the distal stomach and proximal duodenum, likely peptic ulcer disease. 2. 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 Labs Labs: Laboratory Results - last 24 hr 06/10/24 06/10/24 06/10/24 08:32 10:53 22:30 WBC RBC Hgb 7.6 L Hct 23.4 L MCV MCH MCHC RDW Plt Count MPV Immature Gran % (Auto) Neut % (Auto) Lymph % (Auto) [place] % (Auto) Eos % (Auto) Baso % (Auto) Lymph # (Auto) [place] # (Auto) Eos # (Auto) Baso # (Auto) Abs Immat Gran (auto) Absolute Neuts (auto) Absolute Nucleated RBC Nucleated RBC % Sodium Potassium Chloride Carbon Dioxide Anion Gap BUN Creatinine Estim Creat Clear Calc Estimated GFR Glucose Calcium Magnesium Total Bilirubin AST ALT Alkaline Phosphatase Total Protein Albumin Vitamin B12 970.0 H Folate 18.8 Urine Color Dark yellow Urine Appearance Cloudy H Urine pH 5.5 Ur Specific [place] > 1.045 H Urine Protein 2+ H Urine Glucose (UA) Negative Urine Ketones Trace H Ur Blood (Man) Negative Urine Nitrate Positive H Urine Bilirubin 1+ H Urine Urobilinogen 2.0 H Add Ur Microanalysis Reviewed Leukocyte Esterase Rfl 2+ H Urine RBC 6-10 H Urine WBC >100 H Ur Squamous Epith Cells None seen Urine Bacteria 4+ H Urine Casts >20 Hyaline Casts Present Urine Opiates Screen Negative Urine Methadone Screen Negative Ur Barbiturates Screen Negative Ur Phencyclidine Scrn Negative Ur Amphetamine Screen Negative U Benzodiazepines Scrn Negative Urine Cocaine Screen Negative U Cannabinoids Screen Positive A Blood Type O Positive Antibody Screen Negative Crossmatch See Detail 06/11/24 06/11/2424 05:41 05:41 05:41 WBC 9.1 RBC 2.90 L Hgb Cancelled 8.5 L Hct Cancelled 25.7 L MCV 88.6 MCH 29.3 D MCHC 33.1 RDW 14.8 H Plt Count 353 MPV 11.3 H Immature Gran % (Auto) 0.9 H Neut % (Auto) 71.4 Lymph % (Auto) 18.6 [place] % (Auto) 7.9 Eos % (Auto) 1.0 Baso % (Auto) 0.2 Lymph # (Auto) 1.69 [place] # (Auto) 0.7 H Eos # (Auto) 0.1 Baso # (Auto) 0.0 Abs Immat Gran (auto) 0.08 H Absolute Neuts (auto) 6.5 Absolute Nucleated RBC 0.030 H Nucleated RBC % 0.3 H Sodium 136 L Potassium 3.1 L Chloride 102 Carbon Dioxide 26 Anion Gap 8 BUN 14 Creatinine 0.90 Estim Creat Clear Calc 63 Estimated GFR > 60 Glucose 107 Calcium 8.8 Magnesium 2.3 Total Bilirubin 0.5 AST 26 ALT 13 Alkaline Phosphatase 107 Total Protein 7.0 Albumin 2.9 L Vitamin B12 Folate Urine Color Urine Appearance Urine pH Ur Specific [place] Urine Protein Urine Glucose (UA) Urine Ketones Ur Blood (Man) Urine Nitrate Urine Bilirubin Urine Urobilinogen Add Ur Microanalysis Leukocyte Esterase Rfl Urine RBC Urine WBC Ur Squamous Epith Cells Urine Bacteria Urine Casts Hyaline Casts Urine Opiates Screen Urine Methadone Screen Ur Barbiturates Screen Ur Phencyclidine Scrn Ur Amphetamine Screen U Benzodiazepines Scrn Urine Cocaine Screen U Cannabinoids Screen Blood Type Antibody Screen Crossmatch Pulse Oximetry SpO2 results: 96-100% on room air Attestation: I personally reviewed and interpreted this pulse oximetry as follows: Interpretation: No need for supplemental oxygenation at this time Quality VTE Prophylaxis VTE prophylaxis: mechanical ordered If No VTE Prophylaxis Answer both mechanical and pharmacologic: Reason no pharmacologic proph: medical contraindication active bleeding/bleeding risk
--- NOTE | 2024-06-11 14:38 | WPDGIPROGNO ---
Progress Note: A&P Assessment and Plan (1) Symptomatic anemia: Code(s): D64.9 - Anemia, unspecified Status: Acute Assessment and Plan: hgb responded to blood transfusion egd and colonoscopy tomorrow (will give more bowel prep today) (2) Abnormal CT scan, stomach: Code(s): R93.3 - Abnormal findings on diagnostic imaging of other parts of digestive tract Status: Acute Assessment and Plan: possible ulcer by ct scan iv protonix (3) COPD (chronic obstructive pulmonary disease): Code(s): J44.9 - Chronic obstructive pulmonary disease, unspecified Status: Acute (4) Infestation by bed bug: Code(s): B88.8 - Other specified infestations Status: Acute (5) UTI (urinary tract infection): Qualifiers: Hematuria presence: with hematuria Urinary tract infection type: acute cystitis Qualified Code(s): N30.01 - Acute cystitis with hematuria Code(s): N39.0 - Urinary tract infection, site not specified Status: Acute Subjective Date/time seen: 06/11/24 14:38 Interval history: he did not have BM today and not ready for scopes Review of Systems Review of Systems: All systems reviewed & are unremarkable except as noted in HPI and below Exam Const: General: comfortable and no acute distress Other: disheveled HENMT: Face/Nose/Sinus: Normal nares present Eyes: Sclera: sclerae normal Neck: Neck: supple Resp: Auscultation: clear to auscultation bilaterally Cardio: Rate: regular rate Rhythm: regular rhythm GI: Inspection: non-distended GI Palp: Yes Soft to palpation and No Tenderness to palpation present (GI) Auscultation: normal bowel sounds Skin: Other: multiple scabs, noted bed bugs Neuro: Speech: normal speech Motor exam (neuro): 5/5 motor strength present throughout Extrem: General: normal to inspection Psych: Mental Status: mental status grossly normal Objective Data Vital Signs Vital Signs: Vital Signs - 24 hr 06/10/24 15:16 06/10/24 16:21 06/10/24 16:00 Temperature 98.2 F Pulse Rate 88 88 Respiratory Rate 14 Blood Pressure 124/42 L Pulse Oximetry 94 Oxygen Delivery Room Air Fraction of Inspired Oxygen 06/10/24 18:15 06/10/24 18:25 06/10/24 18:15 Temperature Pulse Rate 79 82 Respiratory Rate 20 20 Blood Pressure Pulse Oximetry 95 Oxygen Delivery Room Air Fraction of Inspired Oxygen 06/10/24 19:23 06/10/24 16:37 06/10/24 17:37 Temperature 98.2 F 98.4 F Pulse Rate 83 87 73 Respiratory Rate 20 12 14 Blood Pressure 119/58 L 145/68 H Pulse Oximetry 97 96 Oxygen Delivery Fraction of Inspired Oxygen 06/10/24 18:37 06/10/24 19:29 06/10/24 20:59 Temperature 98.1 F 97.9 F Pulse Rate 85 80 89 Respiratory Rate 16 20 20 Blood Pressure 117/63 127/69 Pulse Oximetry 100 99 Oxygen Delivery Fraction of Inspired Oxygen 06/10/24 20:00 06/11/24 00:16 06/11/24 00:16 Temperature 98.0 F Pulse Rate 86 80 Respiratory Rate 18 16 Blood Pressure 105/52 L Pulse Oximetry 100 Oxygen Delivery Room Air Fraction of Inspired Oxygen 06/11/24 00:30 06/11/24 01:30 06/11/24 02:30 Temperature 98.2 F 98.0 F 98.2 F Pulse Rate 83 82 79 Respiratory Rate 16 18 18 Blood Pressure 116/51 L 109/49 L 94/41 L Pulse Oximetry 100 100 99 Oxygen Delivery Fraction of Inspired Oxygen 06/10/24 20:00 06/11/24 00:00 06/11/24 03:30 Temperature 98.3 F Pulse Rate 85 82 79 Respiratory Rate 18 Blood Pressure 122/62 Pulse Oximetry 100 Oxygen Delivery Fraction of Inspired Oxygen 06/11/24 04:33 06/11/24 04:37 06/11/24 04:00 Temperature 98.0 F 97.8 F Pulse Rate 82 82 82 Respiratory Rate 16 18 Blood Pressure 100/44 L 122/62 Pulse Oximetry 100 95 Oxygen Delivery Fraction of Inspired Oxygen 06/11/24 05:12 06/11/24 05:18 06/11/24 00:22 Temperature Pulse Rate 68 75 81 Respiratory Rate 20 20 16 Blood Pressure Pulse Oximetry Oxygen Delivery Fraction of Inspired Oxygen 06/11/24 08:00 06/11/24 07:55 06/11/24 07:55 Temperature Pulse Rate 87 78 Respiratory Rate 20 Blood Pressure Pulse Oximetry 98 Oxygen Delivery Room Air Fraction of Inspired Oxygen 21 06/11/24 07:59 06/11/24 09:48 06/11/24 12:59 Temperature Pulse Rate 77 86 Respiratory Rate 20 18 Blood Pressure Pulse Oximetry Oxygen Delivery Room Air Fraction of Inspired Oxygen 06/11/24 13:09 06/11/24 14:00 Temperature 98 F Pulse Rate 85 72 Respiratory Rate 18 19 Blood Pressure 128/72 Pulse Oximetry 96 Oxygen Delivery Fraction of Inspired Oxygen Intake/Output Intake/Output: Intake & Output 06/08/24 06/09/24 06/10/24 06/11/24 23:59 23:59 23:59 23:59 Intake Total 1923.3 1356 Output Total 995 500 Balance 928.3 856 Meds/Results Medications: Active Medications Generic Name Dose Route Start Last Admin Trade Name Freq PRN Reason Stop Dose Admin Acetaminophen 1,000 mg 06/10/24 12:35 Acetaminophen 500 Mg Tablet PO Q6H PRN Mild Pain (1-3) or Fever Albuterol/Ipratropium 3 ml 06/10/24 20:00 06/11/24 12:59 Ipratropium 0.5 Mg/Albuterol Sulfate 2.5 Mg Ampul.Neb 3 Ml INHALATION 3 ml Q4HRT FELISHA Administration Bisacodyl 20 mg 06/11/24 16:00 Bisacodyl 5 Mg Tablet Ec PO 06/11/24 16:01 ONCE ONE Ceftriaxone Sodium 1 gm in 50 mls @ 100 mls/hr 06/11/24 09:00 06/11/24 10:17 Rocephin 1 Gm/Ns 50 Ml IVPB Infused Q24H FELISHA Infusion Nicotine 1 patch 06/10/24 18:05 06/11/24 10:04 Nicotine (*Pbkc) 21 Mg Patch TRANSDERM Not Given DAILY FELISHA Ondansetron HCl 4 mg 06/10/24 12:35 Ondansetron Inj 4 Mg/2 Ml Vial IV PUSH Q4H PRN Nausea Pantoprazole Sodium 40 mg 06/10/24 21:00 06/11/24 09:48 Pantoprazole Sodium Iv 40 Mg Vial IV PUSH 40 mg Q12HR FELISHA Administration Polyethylene Glycol 238 gm 06/11/24 16:00 Polyethylene Glycol 3350 238 Gm Bottle PO 06/11/24 16:01 ONCE ONE Radiology Results: ITS Impressions Chest X-Ray 06/10/24 08:56 Impression: Minimal nonspecific bibasilar haziness. Prominent ascending aortic contour may be related to patient positioning. Consider chest CT to more definitively exclude aneurysm, as indicated. Chest/Abdomen/Pelvis CT 06/10/24 10:12 IMPRESSION: 1. Wall thickening of the distal stomach and proximal duodenum, likely peptic ulcer disease. 2. 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 Labs Labs: Laboratory Results - last 24 hr 06/10/24 06/10/24 06/11/24 08:32 22:30 05:41 WBC 9.1 RBC 2.90 L Hgb 7.6 L Cancelled Hct 23.4 L MCV MCH MCHC RDW Plt Count MPV Immature Gran % (Auto) Neut % (Auto) Lymph % (Auto) [place] % (Auto) Eos % (Auto) Baso % (Auto) Lymph # (Auto) [place] # (Auto) Eos # (Auto) Baso # (Auto) Abs Immat Gran (auto) Absolute Neuts (auto) Absolute Nucleated RBC Nucleated RBC % Sodium Potassium Chloride Carbon Dioxide Anion Gap BUN Creatinine Estim Creat Clear Calc Estimated GFR Glucose Calcium Magnesium Total Bilirubin AST ALT Alkaline Phosphatase Total Protein Albumin Blood Type O Positive Antibody Screen Negative Crossmatch See Detail 06/11/24 06/11/24 05:41 05:41 WBC RBC Hgb 8.5 L Hct Cancelled 25.7 L MCV 88.6 MCH 29.3 D MCHC 33.1 RDW 14.8 H Plt Count 353 MPV 11.3 H Immature Gran % (Auto) 0.9 H Neut % (Auto) 71.4 Lymph % (Auto) 18.6 [place] % (Auto) 7.9 Eos % (Auto) 1.0 Baso % (Auto) 0.2 Lymph # (Auto) 1.69 [place] # (Auto) 0.7 H Eos # (Auto) 0.1 Baso # (Auto) 0.0 Abs Immat Gran (auto) 0.08 H Absolute Neuts (auto) 6.5 Absolute Nucleated RBC 0.030 H Nucleated RBC % 0.3 H Sodium 136 L Potassium 3.1 L Chloride 102 Carbon Dioxide 26 Anion Gap 8 BUN 14 Creatinine 0.90 Estim Creat Clear Calc 63 Estimated GFR > 60 Glucose 107 Calcium 8.8 Magnesium 2.3 Total Bilirubin 0.5 AST 26 ALT 13 Alkaline Phosphatase 107 Total Protein 7.0 Albumin 2.9 L Blood Type Antibody Screen Crossmatch
[2024-06-11] MEDS: BISACODYL 5 MG TABLET EC 20 MG PO (17:27)
[2024-06-11] MEDS: busPIRone HCL 10 MG, busPIRone HCL 5 MG 15 MG PO ×2 (17:28→20:15)
[2024-06-11] MEDS: polyethylene glycoL 3350 238 GM BOTTLE PO (17:28)
[2024-06-11] MEDS: NICOTINE (*PBKC) 21 MG PATCH 1 PATCH TRANSDERM (17:35)
[2024-06-12] VITALS (15 sets, daily range): BP systolic 94–118; BP diastolic 46–69; PULSE 76–89; RESP 14–28; TEMP 36.2–36.8; O2SAT 93–100
[2024-06-12] MEDS: IPRATROPIUM 0.5 MG/ALBUTEROL SULFATE 2.5 MG AMPUL.NEB 3 ML INHALATION ×3 (01:43→20:37)
[2024-06-12] MEDS: HALOPERIDOL LACTATE 5 MG/ML VIAL IV PUSH (04:07)
[2024-06-12] MEDS: LORazepam INJ (*CRX) 2 MG/ML VIAL 1 MG IV PUSH (04:07)
[2024-06-12 06:21] LABS: Basophils Percent Auto 0.7 % (0.2-1.2); Eosinophils Absolute Auto 0.1 K/mm3 (0-0.3); Eosinophils Percent Auto 2.2 % (0-4.4); Hematocrit 24.2 % (42.0-52.0); Hemoglobin 7.8 g/dL (14.0-18.0); Immature Granulocyte Absolute 0.04 K/mm3 (0.00-0.031); Immature Granulocyte Percent A 0.7 % (0-0.5); Lymphocytes Absolute Auto 1.95 K/mm3 (0.9-3.2); Lymphocytes Percent Auto 32.4 % (18.3-44.2); Mean Corpuscular HGB Conc 32.2 g/dl (32-36); Mean Corpuscular Hemoglobin 28.8 pg (26-34); Mean Corpuscular Volume 89.3 fl (80-100); Mean Platelet Volume 11.2 fl (7.4-10.4); Monocytes Absolute Auto 0.5 K/mm3 (0.1-0.6); Neutrophils Absolute Auto 3.4 K/mm3 (1.3-6.7); Nucleated Red Blood Cells Perc 0.7 % (0.0-0.2); Platelet Count Result 371 k/mm3 (150-375); Red Blood Count 2.71 M/mm3 (4.6-6.20); Red Cell Distribution Width 15.7 % (11.5-14.5)
[2024-06-12 06:38] LABS: Alanine Aminotransferase 12 U/L (6-50); Albumin Level 2.7 g/dL (3.5-5.1); Alkaline Phosphatase 98 U/L (38-126); Anion Gap 2 mmol/L (4-12); Aspartate Amino Transferase 24 U/L (17-59); Bilirubin,Total 0.5 mg/dL (0.2-1.3); Blood Urea Nitrogen 6 mg/dL (9-20); Calcium 9.2 mg/dL (8.4-10.2); Carbon Dioxide 27 mmol/L (22-30); Chloride 108 mmol/L (98-107); Estimated CRCL calculation 71 ml/min; Estimated Glomerular Filt Rate > 60; Glucose 85 mg/dL (65-110); Magnesium 2.6 mg/dL (1.6-2.3); Potassium 3.8 mmol/L (3.4-5.0); Sodium 137 mmol/L (137-145)
[2024-06-12] MEDS: MAGNESIUM CITRATE 300 ML BTL PO (07:01)
--- NOTE | 2024-06-12 10:03 | PCPTNOTE ---
Attempted PT evaluation, pt currently unarousable due to medications. Will follow.
[2024-06-12] MEDS: busPIRone HCL 10 MG, busPIRone HCL 5 MG 15 MG PO ×2 (11:23→20:36)
[2024-06-12] MEDS: CITALOPRAM HYDROBROMIDE 20 MG TABLET PO (11:23)
[2024-06-12] MEDS: PANTOPRAZOLE SODIUM IV 40 MG VIAL IV PUSH ×2 (11:23→20:53)
[2024-06-12] MEDS: NICOTINE (*PBKC) 21 MG PATCH 1 PATCH TRANSDERM (11:24)
--- NOTE | 2024-06-12 13:26 | P.PNIM_ITS ---
Progress Note: A&P Assessment and Plan (1) Symptomatic anemia: Code(s): D64.9 - Anemia, unspecified Status: Acute Assessment and Plan: * Patient to ER with complaint of weakness * H&H 6.5/20.9 * Patient given 2 units PRBC ordered by the ER * CT scan chest abdomen pelvis shows likely peptic ulcer disease * Digital rectal exam in ER hemoccult negative * GI consulted and plans EGD and colonoscopy tomorrow * NPO after midnight * Bowel prep already ordered 06/11: * Additional bowel prep necessary, EGD and colonoscopy planned for 06/12. Hemoglobin 8.5 status post 3 units PRBC transfused. 06/12/24: * Patient had not completed his mag citrate unsure if he will be cleared for scopes today * Hgb 7.8 (2) UTI (urinary tract infection): Qualifiers: Hematuria presence: with hematuria Urinary tract infection type: acute cystitis Qualified Code(s): N30.01 - Acute cystitis with hematuria Code(s): N39.0 - Urinary tract infection, site not specified Status: Acute Assessment and Plan: * Urinalysis cloudy with specific gravity greater than 1.0452+ protein trace ketones positive nitrates 1+ bilirubin 2+ uro bili gin 2+ leukocyte esterase 6-10 red cells greater than 100 white cells no squamous 4+ bacteria greater than 20 urine hyaline casts * Cultures pending * Given Rocephin in ER and will be continued 06/12/24: * Gram-negative bacilli * Continue with IV Rocephin pending cultures (3) Weakness: Code(s): R53.1 - Weakness Status: Acute Assessment and Plan: * Likely secondary to UTI and anemia * PT/OT (4) Gastric ulcer: Code(s): K25.9 - Gastric ulcer, unspecified as acute or chronic, without hemorrhage or perforation Status: Acute Assessment and Plan: * CT abdomen showing wall thickening distal stomach proximal duodenum consistent with peptic ulcer disease * PPI * GI consulted * Awaiting on EGD/colonoscopy (5) Infestation by bed bug: Code(s): B88.8 - Other specified infestations Status: Acute Assessment and Plan: * Bed bug infestation identified in ER * Multiple scabs all over exposed skin * Patient cleaned and changed in ER * Will order permethrin 5% application x1 (6) History of COPD: Code(s): Z87.09 - Personal history of other diseases of the respiratory system Status: Acute Assessment and Plan: * Stable * Dunarendra PRN (7) Nicotine dependence: Code(s): F17.200 - Nicotine dependence, unspecified, uncomplicated Status: Acute Assessment and Plan: Smoking ? smoking cessation education ? nicotine patch daily ? remove at night Plan Code status: Full code per patient DVT prophylaxis: SCD's Stress ulcer prophylaxis: Protonix 40 daily PT/OT notes: PT/OT pending Disposition: Still attempting to clear patient for EGD and colonoscopy hemoglobin stable at 7.8 today, continuing with IV Rocephin pending cultures UTI . [facility] since [facility] is poor historian and does not remember the antipsychotics he was taking. Patient states he lives at home alone and has a daughter however this time he refuses to allow me to speak with her. Time Spent With Patient Time with patient: 15 - 25 minutes Subjective Date/time seen: 06/12/24 13:26 Interval history: Patient is a 68 year male who was admitted for anemia secondary to GIB and weakness. 06/12/2024: Assumed care Patient still reported weakness, with minimal conversation would not take the blanket off his head while conversing. Patient was given Haldol overnight due to agitation, he is a poor historian unable to remember what antipsychotic medication to confirm [facility]. Patient denied chest pain, SOB, dizziness or N/V very limited on why patient came here. Review of Systems Review of Systems: All systems reviewed & are unremarkable except as noted in HPI and below Exam Narrative: Physical Exam: * GENERAL: Alert and oriented x 3. No acute distress. Disheveled * LUNGS: Clear to auscultation bilaterally. No accessory muscle use. * CARDIOVASCULAR: Regular rate and rhythm. No murmur. S1-S2 * ABDOMEN: Soft, non tenderness and non-distended. No palpable masses. * EXTREMITIES: No edema. Non-tender * SKIN: No rashes or lesions. Skin warm, dry. * NEUROLOGIC: No focal neurological deficits. * PSYCHIATRIC: Withdrawn mood and affect. Poor judgement and insight. Objective Data Vital Signs Vital Signs: Vital Signs - 24 hr 06/11/24 14:00 06/11/24 20:08 06/11/24 20:20 Temperature 98 F 97.7 F Pulse Rate 72 77 Respiratory Rate 19 20 Blood Pressure 128/72 112/64 Pulse Oximetry 96 100 100 Oxygen Delivery Room Air 06/11/24 20:20 06/11/24 20:00 06/11/24 20:26 Temperature Pulse Rate 75 77 Respiratory Rate 20 20 Blood Pressure Pulse Oximetry Oxygen Delivery Room Air 06/12/24 01:51 06/12/24 01:45 06/12/24 06:00 Temperature 98.2 F Pulse Rate 79 83 87 Respiratory Rate 20 20 16 Blood Pressure 94/53 L Pulse Oximetry 98 Oxygen Delivery 06/12/24 07:32 06/12/24 07:32 06/12/24 07:50 Temperature Pulse Rate 77 79 Respiratory Rate 18 18 Blood Pressure Pulse Oximetry 99 Oxygen Delivery Room Air Intake/Output Intake/Output: Intake & Output 06/09/24 06/10/24 06/11/24 06/12/24 23:59 23:59 23:59 23:59 Intake Total 1923.3 1536 0 Output Total 995 500 Balance 928.3 1036 0 Meds/Results Medications: Active Medications Generic Name Dose Route Start Last Admin Trade Name Freq PRN Reason Stop Dose Admin Acetaminophen 1,000 mg 06/10/24 12:35 Acetaminophen 500 Mg Tablet PO Q6H PRN Mild Pain (1-3) or Fever Albuterol/Ipratropium 3 ml 06/11/24 20:00 06/12/24 07:31 Ipratropium 0.5 Mg/Albuterol Sulfate 2.5 Mg Ampul.Neb 3 Ml INHALATION 3 ml Q6HRT FELISHA Administration Buspirone HCl 10 mg/ Buspirone 15 mg 06/11/24 16:20 06/12/24 11:23 HCl 5 mg PO 15 mg Q12HR FELISHA Administration Citalopram Hydrobromide 20 mg 06/12/24 09:00 06/12/24 11:23 Citalopram Hydrobromide 20 Mg Tablet PO 20 mg QAM FELISHA Administration Ceftriaxone Sodium 1 gm in 50 mls @ 100 mls/hr 06/11/24 09:00 06/12/24 11:24 Rocephin 1 Gm/Ns 50 Ml IVPB 100 mls/hr Q24H FELISHA Administration Nicotine 1 patch 06/10/24 18:05 06/12/24 11:24 Nicotine (*Pbkc) 21 Mg Patch TRANSDERM 1 patch DAILY FELISHA Administration Ondansetron HCl 4 mg 06/10/24 12:35 Ondansetron Inj 4 Mg/2 Ml Vial IV PUSH Q4H PRN Nausea Pantoprazole Sodium 40 mg 06/10/24 21:00 06/12/24 11:23 Pantoprazole Sodium Iv 40 Mg Vial IV PUSH 40 mg Q12HR FELISHA Administration Radiology Results: ITS Impressions Chest X-Ray 06/10/24 08:56 Impression: Minimal nonspecific bibasilar haziness. Prominent ascending aortic contour may be related to patient positioning. Consider chest CT to more definitively exclude aneurysm, as indicated. Chest/Abdomen/Pelvis CT 06/10/24 10:12 IMPRESSION: 1. Wall thickening of the distal stomach and proximal duodenum, likely peptic ulcer disease. 2. 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 Labs Labs: Laboratory Results - last 24 hr 06/12/24 05:53 WBC 6.0 RBC 2.71 L Hgb 7.8 L Hct 24.2 L MCV 89.3 MCH 28.8 MCHC 32.2 RDW 15.7 H Plt Count 371 MPV 11.2 H Immature Gran % (Auto) 0.7 H Neut % (Auto) 56.0 Lymph % (Auto) 32.4 [place] % (Auto) 8.0 Eos % (Auto) 2.2 Baso % (Auto) 0.7 Lymph # (Auto) 1.95 [place] # (Auto) 0.5 Eos # (Auto) 0.1 Baso # (Auto) 0.0 Abs Immat Gran (auto) 0.04 H Absolute Neuts (auto) 3.4 Absolute Nucleated RBC 0.040 H Nucleated RBC % 0.7 H Sodium 137 Potassium 3.8 Chloride 108 H Carbon Dioxide 27 Anion Gap 2 L BUN 6 L D Creatinine 0.80 Estim Creat Clear Calc 71 Estimated GFR > 60 Glucose 85 Calcium 9.2 Magnesium 2.6 H Total Bilirubin 0.5 AST 24 ALT 12 Alkaline Phosphatase 98 Total Protein 7.0 Albumin 2.7 L Quality VTE Prophylaxis VTE prophylaxis: mechanical ordered -Patient's previous records reviewed on admission -ER notes reviewed in detail on admission -discussed all findings and current treatment plan with patient/Family/POA -Consultations reviewed for recommendations -Patient's disposition for safe discharge discussed with case hardener Dictation performed by [employer] direct speech recognition software, therefore process worker variants and typographical errors may occur. Hospitalist [facility] Advance Care Plan I have confirmed that the patient's Advanced Care Plan is present, code status is documented, or surrogate decision maker is listed in patient medical record.: Yes Medication Reconciliation I have utilized all available resources to obtain, update and review the patients current medications (includes all prescriptions, OTC, herbals, c annabis, and nutritional supplements).: Yes The patient is not eligible for med reconciliation; the patient is in a emergent medical situation where delaying treatment would jeopardize the patients health.: No
--- NOTE | 2024-06-12 14:24 | P.PNAN_ITS ---
Anes - Initial Pre Proc Eval Procedure: Operation Date: 06/12/24 15:30 Proposed Procedures p Esophagogastroduodenoscopy & Colonoscopy - Ty Nolan MD Date/Time: 06/12/24 14:24 Surgeon: Denise York APRN Pre Op Diagnosis: symptomatic anemia,pud,uti Patient Data Age: 68 Gender: M Height: 1.57 m Weight: 80.5 kg Last Vital Signs Temp 36.2 C L 06/12/24 14:22 Pulse 80 06/12/24 14:22 Resp 14 06/12/24 14:22 BP 103/46 L 06/12/24 14:22 Pulse Ox 93 06/12/24 14:22 O2 Del Method Room Air 06/12/24 14:22 FiO2 21 06/11/24 07:55 Allergies Allergy/AdvReac Type Severity Reaction Status Date / Time penicillin G Allergy Unknown Unknown Verified 06/10/24 13:00 NSAIDS (Non-Steroidal AdvReac Unknown gi bleed Verified 06/10/24 13:00 Anti-Inflamma Home Medications Medication Instructions Recorded Confirmed Type No Home Medications 06/10/24 06/10/24 History Laboratory Tests 06/12/24 05:53 WBC 6.0 K/mm3 (4.5-10.0) RBC 2.71 L M/mm3 (4.6-6.20) Hgb 7.8 L g/dL (14.0-18.0) Hct 24.2 L % (42.0-52.0) MCV 89.3 fl (80-100) MCH 28.8 pg (26-34) MCHC 32.2 g/dl (32-36) RDW 15.7 H % (11.5-14.5) Plt Count 371 k/mm3 (150-375) MPV 11.2 H fl (7.4-10.4) Immature Gran % (Auto) 0.7 H % (0-0.5) Neut % (Auto) 56.0 % (45.5-73.1) Lymph % (Auto) 32.4 % (18.3-44.2) [place] % (Auto) 8.0 % (2.6-8.5) Eos % (Auto) 2.2 % (0-4.4) Baso % (Auto) 0.7 % (0.2-1.2) Lymph # (Auto) 1.95 K/mm3 (0.9-3.2) [place] # (Auto) 0.5 K/mm3 (0.1-0.6) Eos # (Auto) 0.1 K/mm3 (0-0.3) Baso # (Auto) 0.0 K/mm3 (0.0-0.1) Abs Immat Gran (auto) 0.04 H K/mm3 (0.00-0.031) Absolute Neuts (auto) 3.4 K/mm3 (1.3-6.7) Absolute Nucleated RBC 0.040 H K/mm3 (0.0-0.012) Nucleated RBC % 0.7 H % (0.0-0.2) Sodium 137 mmol/L (137-145) Potassium 3.8 mmol/L (3.4-5.0) Chloride 108 H mmol/L (98-107) Carbon Dioxide 27 mmol/L (22-30) Anion Gap 2 L mmol/L (4-12) BUN 6 L D mg/dL (9-20) Creatinine 0.80 mg/dL (0.7-1.3) Estim Creat Clear Calc 71 ml/min Estimated GFR > 60 (59 - ) Glucose 85 mg/dL (65-110) Calcium 9.2 mg/dL (8.4-10.2) Magnesium 2.6 H mg/dL (1.6-2.3) Total Bilirubin 0.5 mg/dL (0.2-1.3) AST 24 U/L (17-59) ALT 12 U/L (6-50) Alkaline Phosphatase 98 U/L (38-126) Total Protein 7.0 g/dL (6.3-8.2) Albumin 2.7 L g/dL (3.5-5.1) Patient hx anesthesia problems: none Family hx anesthesia problems: none Results Review: All pre-operative results and documents have been reviewed as part of the pre- operative evaluation. REPLACED BY [facility] Past Medical History Medical History (Updated 06/12/24 @ 14:25 by Kurtis Kulkarni MD) Abnormal CT scan, stomach COPD (chronic obstructive pulmonary disease) Gastric ulcer Infestation by bed bug Family History Family History Other Unknown family medical history Social History Social History Smoking status: Current every day smoker Tobacco type: cigarettes Additional smoking assessment comments: unsure how much Alcohol intake: former Substance use: never Substance use type: does not use Do You Feel Safe in your Home?: Yes Lack of Transportation: No Lack of Food: Never True Current Housing: I Have Housing Concerned About Future Housing: No Difficulty Paying Gas/Electric Bills: No Difficulty Paying for Meds: No Currently Unemployed: No Education: High School Diploma/GED Difficulty w/ Childcare or Family Care: No Spiritual care concerns: No Anes - Eval Final PreProcedure Day of Procedure 06/12/24 14:24 Patient weight: obese Heart: regular rate and rhythm Neurological: unresponsive Last oral intake: >/= 8 hours ASA classification: IV Emergent: no Anesthetic plan: proceed Anesthesia type and monitoring: general GIVS and standard monitoring Results Review: All pre-operative results and documents have been reviewed as part of the pre- operative evaluation. Informed Consent: The patient's anesthetic plan and its attendant risks and benefits were discussed with the patient/family/POA. Questions were solicited and answers provided to the satisfaction of the patient/family/POA.
--- NOTE | 2024-06-12 14:50 | SUR.OPER ---
[facility]- [id number] [facility] [phone]
[2024-06-12] MEDS: LACTATED RINGERS 1,000 ML 150 ML IV CONT (15:12)
[2024-06-12 16:06] LABS: HPYLORIRESULT Negative (Negative)
[2024-06-13 02:10] VITALS: PULSE 82; RESP 18
[2024-06-13] MEDS: IPRATROPIUM 0.5 MG/ALBUTEROL SULFATE 2.5 MG AMPUL.NEB 3 ML INHALATION ×3 (02:10→13:58)
[2024-06-13 02:18] VITALS: PULSE 84; RESP 18
[2024-06-13 07:18] LABS: Basophils Percent Auto 0.2 % (0.2-1.2); Eosinophils Absolute Auto 0.2 K/mm3 (0-0.3); Eosinophils Percent Auto 2.2 % (0-4.4); Hematocrit 26.6 % (42.0-52.0); Hemoglobin 8.4 g/dL (14.0-18.0); Immature Granulocyte Absolute 0.05 K/mm3 (0.00-0.031); Immature Granulocyte Percent A 0.6 % (0-0.5); Lymphocytes Absolute Auto 2.24 K/mm3 (0.9-3.2); Lymphocytes Percent Auto 25.4 % (18.3-44.2); Mean Corpuscular HGB Conc 31.6 g/dl (32-36); Mean Corpuscular Hemoglobin 29.2 pg (26-34); Mean Corpuscular Volume 92.4 fl (80-100); Mean Platelet Volume 10.8 fl (7.4-10.4); Monocytes Absolute Auto 0.6 K/mm3 (0.1-0.6); Monocytes Percent Auto 6.9 % (2.6-8.5); Neutrophils Absolute Auto 5.7 K/mm3 (1.3-6.7); Neutrophils Percent Auto 64.7 % (45.5-73.1); Nucleated Red Blood Cells Perc 0.8 % (0.0-0.2); Platelet Count Result 373 k/mm3 (150-375); Red Blood Count 2.88 M/mm3 (4.6-6.20); Red Cell Distribution Width 15.8 % (11.5-14.5); White Blood Count 8.8 K/mm3 (4.5-10.0)
[2024-06-13 07:30] VITALS: PULSE 79; RESP 18; O2SAT 98
[2024-06-13 07:37] LABS: Alanine Aminotransferase 12 U/L (6-50); Alkaline Phosphatase 100 U/L (38-126); Anion Gap 4 mmol/L (4-12); Aspartate Amino Transferase 24 U/L (17-59); Bilirubin,Total 0.3 mg/dL (0.2-1.3); Blood Urea Nitrogen 13 mg/dL (9-20); Calcium 8.9 mg/dL (8.4-10.2); Carbon Dioxide 26 mmol/L (22-30); Chloride 103 mmol/L (98-107); Estimated CRCL calculation 52 ml/min; Estimated Glomerular Filt Rate > 60; Glucose 86 mg/dL (65-110); Magnesium 2.4 mg/dL (1.6-2.3); Potassium 4.4 mmol/L (3.4-5.0); Sodium 133 mmol/L (137-145)
[2024-06-13 07:38] VITALS: PULSE 81; RESP 18
[2024-06-13] MEDS: NICOTINE (*PBKC) 21 MG PATCH 1 PATCH TRANSDERM (09:30)
[2024-06-13] MEDS: CEFDINIR 300 MG CAPSULE PO (09:30)
[2024-06-13] MEDS: busPIRone HCL 10 MG, busPIRone HCL 5 MG 15 MG PO (09:30)
[2024-06-13] MEDS: PANTOPRAZOLE SODIUM IV 40 MG VIAL IV PUSH (09:30)
[2024-06-13] MEDS: CITALOPRAM HYDROBROMIDE 20 MG TABLET PO (09:30)
--- NOTE | 2024-06-13 11:07 | P.PNAN_ITS ---
Anes - Prog Note Post-Op Date/Time: 06/13/24 11:07 Cardiovascular status: normal Respiratory status: normal Airway patency: baseline Mental status: baseline Post-Op hydration status: normal Vital Signs: Last Vital Signs Temp 36.8 C 06/12/24 22:00 Pulse 81 06/13/24 07:38 Resp 18 06/13/24 07:38 BP 109/59 L 06/12/24 22:00 Pulse Ox 98 06/13/24 07:30 O2 Del Method Room Air 06/13/24 10:25 O2 Flow Rate 4 06/12/24 15:14 FiO2 21 06/12/24 20:00 Pain Score (VAS): 0 I/O: Intake & Output 06/12/24 06/13/24 06/13/24 23:59 07:59 15:59 Intake Total 240 0 450 Balance 240 0 450 Laboratory Tests 06/13/24 07:01 06/13/24 07:01 06/12/24 06/13/24 16:03 07:01 WBC 8.8 RBC 2.88 L Hgb 8.4 L Hct 26.6 L MCV 92.4 MCH 29.2 MCHC 31.6 L RDW 15.8 H Plt Count 373 MPV 10.8 H Immature Gran % (Auto) 0.6 H Neut % (Auto) 64.7 Lymph % (Auto) 25.4 [place] % (Auto) 6.9 Eos % (Auto) 2.2 Baso % (Auto) 0.2 Lymph # (Auto) 2.24 [place] # (Auto) 0.6 Eos # (Auto) 0.2 Baso # (Auto) 0.0 Abs Immat Gran (auto) 0.05 H Absolute Neuts (auto) 5.7 Absolute Nucleated RBC 0.070 H Nucleated RBC % 0.8 H Sodium 133 L Potassium 4.4 Chloride 103 Carbon Dioxide 26 Anion Gap 4 BUN 13 D Creatinine 1.10 Estim Creat Clear Calc 52 Estimated GFR > 60 Glucose 86 Calcium 8.9 Magnesium 2.4 H Total Bilirubin 0.3 AST 24 ALT 12 Alkaline Phosphatase 100 Total Protein 7.0 Albumin 3.0 L POC H. pylori Urease Negative Microbiology 06/10/24 10:53 Urine Clean Catch Urine Culture - Final Escherichia Coli Post-procedural complaints: none Patient Feedback: Patient satisfied with anesthetic care.
--- NOTE | 2024-06-13 12:28 | P.PNGI_ITS ---
Progress Note: A&P Assessment and Plan (1) PUD (peptic ulcer disease): Code(s): K27.9 - Peptic ulcer, site unspecified, unspecified as acute or chronic, without hemorrhage or perforation Status: Acute Assessment and Plan: noted large DU and gastric ulcers this can explain presentation with anemia he can go home with ppi twice daily, no nsaid's egd in 4 months to assess healing (2) Symptomatic anemia: Code(s): D64.9 - Anemia, unspecified Status: Acute Assessment and Plan: better after transfusion will need iron supplement (3) COPD (chronic obstructive pulmonary disease): Code(s): J44.9 - Chronic obstructive pulmonary disease, unspecified Status: Acute (4) Infestation by bed bug: Code(s): B88.8 - Other specified infestations Status: Inactive (5) Adenomatous colon polyp: Code(s): D12.6 - Benign neoplasm of colon, unspecified Status: Acute Assessment and Plan: colonoscopy in 3 years Subjective Date/time seen: 06/13/24 12:28 Interval history: egd yesterday with duodenal and gastric ulcers, also had colon polyps he is doing ok today, comfortable and eating Review of Systems Review of Systems: All systems reviewed & are unremarkable except as noted in HPI and below Exam Const: General: comfortable and no acute distress Other: disheveled HENMT: Face/Nose/Sinus: Normal nares present Eyes: Sclera: sclerae normal Neck: Neck: supple Resp: Auscultation: clear to auscultation bilaterally Cardio: Rate: regular rate Rhythm: regular rhythm GI: Inspection: non-distended GI Palp: Yes Soft to palpation and No Tenderness to palpation present (GI) Auscultation: normal bowel sounds Skin: Other: multiple scabs Neuro: Speech: normal speech Motor exam (neuro): 5/5 motor strength present throughout Extrem: General: normal to inspection Psych: Mental Status: mental status grossly normal Objective Data Vital Signs Vital Signs: Vital Signs - 24 hr 06/12/24 14:22 06/12/24 15:14 06/12/24 15:24 Temperature 97.1 F L Pulse Rate 80 79 81 Respiratory Rate 14 24 H 28 H Blood Pressure 103/46 L 118/69 111/60 Pulse Oximetry 93 96 100 Oxygen Delivery Room Air Nasal Cannula Room Air Oxygen Flow Rate 4 Fraction of Inspired Oxygen 06/12/24 15:34 06/12/24 14:00 06/12/24 20:37 Temperature 97.8 F Pulse Rate 77 76 89 Respiratory Rate 27 H 18 18 Blood Pressure 112/60 101/52 L Pulse Oximetry 100 98 Oxygen Delivery Room Air Oxygen Flow Rate Fraction of Inspired Oxygen 06/12/24 20:39 06/12/24 20:47 06/12/24 22:00 Temperature 98.2 F Pulse Rate 89 85 88 Respiratory Rate 18 20 Blood Pressure 109/59 L Pulse Oximetry 97 99 Oxygen Delivery Room Air Oxygen Flow Rate Fraction of Inspired Oxygen 06/13/24 02:10 06/13/24 02:18 06/12/24 20:00 Temperature Pulse Rate 82 84 84 Respiratory Rate 18 18 18 Blood Pressure Pulse Oximetry 99 Oxygen Delivery Room Air Oxygen Flow Rate Fraction of Inspired Oxygen 21 06/13/24 07:30 06/13/24 07:30 06/13/24 07:38 Temperature Pulse Rate 79 79 81 Respiratory Rate 18 18 Blood Pressure Pulse Oximetry 98 Oxygen Delivery Room Air Oxygen Flow Rate Fraction of Inspired Oxygen 06/13/24 10:25 Temperature Pulse Rate Respiratory Rate Blood Pressure Pulse Oximetry Oxygen Delivery Room Air Oxygen Flow Rate Fraction of Inspired Oxygen Intake/Output Intake/Output: Intake & Output 06/10/24 06/11/24 06/12/24 06/13/24 23:59 23:59 23:59 23:59 Intake Total 1923.3 1536 440 450 Output Total 995 500 Balance 928.3 1036 440 450 Meds/Results Medications: Active Medications Generic Name Dose Route Start Last Admin Trade Name Freq PRN Reason Stop Dose Admin Acetaminophen 1,000 mg 06/10/24 12:35 Acetaminophen 500 Mg Tablet PO Q6H PRN Mild Pain (1-3) or Fever Albuterol/Ipratropium 3 ml 06/11/24 20:00 06/13/24 07:30 Ipratropium 0.5 Mg/Albuterol Sulfate 2.5 Mg Ampul.Neb 3 Ml INHALATION 3 ml Q6HRT FELISHA Administration Buspirone HCl 10 mg/ Buspirone 15 mg 06/11/24 16:20 06/13/24 09:30 HCl 5 mg PO 15 mg Q12HR FELISHA Administration Cefdinir 300 mg 06/13/24 09:00 06/13/24 09:30 Cefdinir 300 Mg Capsule PO 10/13/24 21:01 300 mg Q12HR FELISHA Administration Citalopram Hydrobromide 20 mg 06/12/24 09:00 06/13/24 09:30 Citalopram Hydrobromide 20 Mg Tablet PO 20 mg QAM FELISHA Administration Nicotine 1 patch 06/10/24 18:05 06/13/24 09:30 Nicotine (*Pbkc) 21 Mg Patch TRANSDERM 1 patch DAILY FELISHA Administration Ondansetron HCl 4 mg 06/10/24 12:35 Ondansetron Inj 4 Mg/2 Ml Vial IV PUSH Q4H PRN Nausea Pantoprazole Sodium 40 mg 06/10/24 21:00 06/13/24 09:30 Pantoprazole Sodium Iv 40 Mg Vial IV PUSH 40 mg Q12HR FELISHA Administration Radiology Results: ITS Impressions Chest X-Ray 06/10/24 08:56 Impression: Minimal nonspecific bibasilar haziness. Prominent ascending aortic contour may be related to patient positioning. Consider chest CT to more definitively exclude aneurysm, as indicated. Chest/Abdomen/Pelvis CT 06/10/24 10:12 IMPRESSION: 1. Wall thickening of the distal stomach and proximal duodenum, likely peptic ulcer disease. 2. 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 Labs Labs: Laboratory Results - last 24 hr 06/12/24 06/13/24 16:03 07:01 WBC 8.8 RBC 2.88 L Hgb 8.4 L Hct 26.6 L MCV 92.4 MCH 29.2 MCHC 31.6 L RDW 15.8 H Plt Count 373 MPV 10.8 H Immature Gran % (Auto) 0.6 H Neut % (Auto) 64.7 Lymph % (Auto) 25.4 [place] % (Auto) 6.9 Eos % (Auto) 2.2 Baso % (Auto) 0.2 Lymph # (Auto) 2.24 [place] # (Auto) 0.6 Eos # (Auto) 0.2 Baso # (Auto) 0.0 Abs Immat Gran (auto) 0.05 H Absolute Neuts (auto) 5.7 Absolute Nucleated RBC 0.070 H Nucleated RBC % 0.8 H Sodium 133 L Potassium 4.4 Chloride 103 Carbon Dioxide 26 Anion Gap 4 BUN 13 D Creatinine 1.10 Estim Creat Clear Calc 52 Estimated GFR > 60 Glucose 86 Calcium 8.9 Magnesium 2.4 H Total Bilirubin 0.3 AST 24 ALT 12 Alkaline Phosphatase 100 Total Protein 7.0 Albumin 3.0 L POC H. pylori Urease Negative
--- NOTE | 2024-06-13 13:03 | P.DS_ITS ---
DS: Admitting Diagnosis Discharge Date 06/13/2024 Admitting Diagnosis Gastric Ulcer/GI bleed DS: Discharge Diagnosis Discharge Diagnosis (1) Symptomatic anemia: Code(s): D64.9 - Anemia, unspecified Status: Acute (2) UTI (urinary tract infection): Qualifiers: Hematuria presence: with hematuria Urinary tract infection type: acute cystitis Qualified Code(s): N30.01 - Acute cystitis with hematuria Code(s): N39.0 - Urinary tract infection, site not specified Status: Acute (3) Weakness: Code(s): R53.1 - Weakness Status: Acute (4) Gastric ulcer: Code(s): K25.9 - Gastric ulcer, unspecified as acute or chronic, without hemorrhage or perforation Status: Inactive (5) Infestation by bed bug: Code(s): B88.8 - Other specified infestations Status: Inactive (6) History of COPD: Code(s): Z87.09 - Personal history of other diseases of the respiratory system Status: Acute (7) Nicotine dependence: Code(s): F17.200 - Nicotine dependence, unspecified, uncomplicated Status: Acute Plan Disposition: Patient discharged with brother and will be staying with him until housing arrangements can be made and they will set-up home health through the [place]. DS: Summary Hospital Course Reason for hospitalization: Peptic Ulcer disease/anemia Hospital Course: Patient was a 68-year-old male admitted due to possible GI bleed. On admission patient was found to have a UTI with generalized weakness and bed bug infestation. Upon evaluation the emergency room patient was found to be anemic with a hemoglobin of 6.5 he was transfused PRBCs and admitted to the medical unit with consult to GI. Patient underwent EGD and colonoscopy which showed no signs of bleeding but severe peptic ulcer disease. Patient was also started on pantoprazole b.i.d. as well an iron supplement he was found to have underlying iron deficiency anemia. Patient also had some complaints of burning with urination and found to have urinary tract infection which grew E coli which was transition to PO cefdinir. Patient had been seen by PT/OT who recommended home health. Patient currently is homeless however stated he was able to go stay w ith his brother and they would set up home health through the [place] office. Patient was feeling better day of discharge and hemoglobin had stabilized no signs overt bleeding will need to [facility] I recommended a CBC and GI recommended a follow-up in 4 months for a 2nd EGD to assess for healing and he can do colonoscopy in 3 years. Status at Discharge Functional status at discharge: uses cane/walker Time Spent with Patient Time attestation: Total time spent providing and/or coordinating discharge services: Time spent: Greater than 30 minutes Exam Narrative: Physical Exam: * GENERAL: Alert and oriented x 3. No acute distress. Disheveled * LUNGS: Clear to auscultation bilaterally. No accessory muscle use. * CARDIOVASCULAR: Regular rate and rhythm. No murmur. S1-S2 * ABDOMEN: Soft, non tenderness and non-distended. No palpable masses. * EXTREMITIES: No edema. Non-tender * SKIN: No rashes or lesions. Skin warm, dry. * NEUROLOGIC: No focal neurological deficits. * PSYCHIATRIC: Withdrawn mood and affect. Poor judgement and insight. DS: Data Data Completed and Pending Pending studies at discharge: Pending at discharge 06/12/24 14:51 Surgical [PTH] Routine Surgical [PTH] Routine Labs on day of discharge: Labs from last 24 hours 06/13/24 06/12/24 07:01 16:03 WBC 8.8 RBC 2.88 L Hgb 8.4 L Hct 26.6 L MCV 92.4 MCH 29.2 MCHC 31.6 L RDW 15.8 H Plt Count 373 MPV 10.8 H Immature Gran % (Auto) 0.6 H Neut % (Auto) 64.7 Lymph % (Auto) 25.4 Cole % (Auto) 6.9 Eos % (Auto) 2.2 Baso % (Auto) 0.2 Lymph # (Auto) 2.24 Cole # (Auto) 0.6 Eos # (Auto) 0.2 Baso # (Auto) 0.0 Abs Immat Gran (auto) 0.05 H Absolute Neuts (auto) 5.7 Absolute Nucleated RBC 0.070 H Nucleated RBC % 0.8 H Sodium 133 L Potassium 4.4 Chloride 103 Carbon Dioxide 26 Anion Gap 4 BUN 13 D Creatinine 1.10 Estim Creat Clear Calc 52 Estimated GFR > 60 Glucose 86 Calcium 8.9 Magnesium 2.4 H Total Bilirubin 0.3 AST 24 ALT 12 Alkaline Phosphatase 100 Total Protein 7.0 Albumin 3.0 L POC H. pylori Urease Negative Preliminary micro results at discharge 06/10/24 13:02 Blood Culture - Preliminary Blood 06/10/24 13:02 Blood Culture - Preliminary Blood Imaging Radiologist's impression: Radiology Results: ITS Impressions Chest X-Ray 06/10/24 08:56 Impression: Minimal nonspecific bibasilar haziness. Prominent ascending aortic contour may be related to patient positioning. Consider chest CT to more definitively exclude aneurysm, as indicated. Chest/Abdomen/Pelvis CT 06/10/24 10:12 IMPRESSION: 1. Wall thickening of the distal stomach and proximal duodenum, likely peptic ulcer disease. 2. 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 Discharge Plan Discharge Attending physician on discharge: Malcolm Goldsmith Consulting providers: Ty Nolan Discharging Clinician: Denise York Anticipated Discharge Date/Time: 06/13/24 12:49 Patient Disposition: Home, Self-Care Activity: may shower, unlimited and as tolerated Diet: heart healthy Discharge Instructions: You are being discharged home after treatment and diagnosis of Peptic Ulcer disease which was found during your EGD procedure. GI recommendations: * Pantoprazole BID * No NSAIDS * Make follow-up appointment in 4 months for EGD to assess for healing * Colonoscopy in 3 years You were also found to have iron deficiency anemia * In iron supplement has been ordered please take as prescribed * [facility] for [facility] You also were found to have a UTI please take all antibiotics as prescribed I also prescribed an inhaler for your COPD that can be used as needed for shortness of breath. Please review attached education How can you care for yourself at home? ? Keep track of any new symptoms or changes in your symptoms. ? Rest until you feel better. ? Be safe with medicines. Take your medicines exactly as prescribed. Call your doctor if you think you are having a problem with your medicine. ? Do not drive after taking a prescription pain medicine. ? Ensure to follow-up with primary care physician as indicated and provide updated medication list provided to you at discharge. When should you call for help? Call 911 anytime you think you may need emergency care. For example, call if: ? You passed out (lost consciousness). Call your doctor now or seek immediate medical care if: ? You have new symptoms like fever, difficulty breathing, Chest pain, vomiting, or rash. ? You have new or different pain. ? You are confused and are having trouble thinking clearly. ? Your symptoms are getting worse. Watch closely for changes in your health, and be sure to contact your doctor if: ? You do not get better as expected. Patient Instructions: Antibiotic Form, Peptic Ulcer (DC), Urinary Tract Infection in Men (DC), Iron Rich Diet (DC), Iron Deficiency Anemia (GEN), COPD (Chronic Obstructive Pulmonary Disease) (DC), Chronic Lung Disease and Infection Prevention (DC) Patient Language: Telugu Stand Alone Forms: General Discharge Information Follow-up/Referrals: Ty Nolan MD [Physician] - Other (4 Months for Follow-up EGD) Discharge Medications: New pantoprazole 40 mg tablet,delayed release (DR/EC) 40 mg PO Q12H Qty: 60 5RF citalopram [Celexa] 20 mg Tablet 20 mg PO QAM Qty: 30 0RF cefdinir 300 mg Capsule 300 mg PO Q12HR Qty: 8 0RF buspirone 15 mg Tablet 15 mg PO Q12HR Qty: 60 0RF albuterol sulfate 90 mcg/actuation HFA aerosol inhaler 1 inh inhalation QID PRN (Reason: shortness of breath or wheezing) Qty: 6.7 0RF ferrous sulfate 325 mg (65 mg iron) tablet 325 mg PO BID Qty: 60 0RF Date of admission: 06/11/24 10:57 Primary Care Provider: UNKNOWN,DOCTOR Admitting Provider: Chelly Zavaleta Attending physician on admission: Denise York Condition: Stable Hospitalist MIPS Heart Failure (Exclusion) Patient has history of Heart Transplant or Left Ventricular Assistive Device?: No IF YES, STOP HERE Heart Failure (Qualifier) Patient has current or prior documentation of LVEF less than or equal to 40%, or mod/servere depressed LVSF?: No IF NO, STOP HERE
[2024-06-13 13:58] VITALS: PULSE 89; RESP 20
[2024-06-13 14:05] VITALS: PULSE 86; RESP 20
== END 2024-06-13 14:35 | disposition home or self-care (01) | DRG 384 ==
LOC: ANHED 12:58 → ANH2MED 14:12
PROVIDERS: Emergency Medicine; Internal Medicine Gastroenterology; Nurse Practitioner; Admitting Provider Internal Medicine; Emergency Provider Physician Assistant; Visit Provider Nurse Practitioner Family
PROC: 0DJ08ZZ Inspection of Upper Intestinal Tract, Via Natural or Artificial Opening Endoscopic (ICD-10-PCS; CPT 43235; principal; 2024-06-12 15:30)
DX: K25.9 Gastric ulcer, unspecified as acute or chronic, without hemorrhage or perforation (principal); N39.0 Urinary tract infection, site not specified; K26.9 Duodenal ulcer, unspecified as acute or chronic, without hemorrhage or perforation; K29.70 Gastritis, unspecified, without bleeding; K63.5 Polyp of colon; D50.9 Iron deficiency anemia, unspecified; E86.0 Dehydration; E87.6 Hypokalemia; B88.8 Other specified infestations; J44.9 Chronic obstructive pulmonary disease, unspecified; F17.210 Nicotine dependence, cigarettes, uncomplicated; W57.XXXA Bitten or stung by nonvenomous insect and other nonvenomous arthropods, initial encounter; Z20.822 Contact with and (suspected) exposure to COVID-19
CPT/HCPCS: 36415; 36430; 71045; 71260; 74177; 80053; 80307; 81001; 82077; 82607; 82728; 82746; 82948; 83540; 83550; 83605; 83735; 83880; 84443; 84466; 85014; 85018; 85025; 85046; 85610; 85730; 86850; 86900; 86901; 86923; 87040; 87081; 87086; 87186; 87636; 88305; 88342; 93005; 94640; 96365; 96366; 96367; 96375; 96376; 97161; 97165; 99285; A9270; G0378; J0696; J1630; J1756; J1940; J2003; J2060; J2371; J2470; J2704; J3480; J7040; J7050; J7120; P9016; Q9967

== ENCOUNTER 2024-06-21 14:52 | Emergency (ER) | payer MEDICARE, MEDICAID, SELFPAY ==
[2024-06-21] VITALS (8 sets, daily range): BP systolic 103–145; BP diastolic 57–81; PULSE 73–85; RESP 14–20; TEMP 36.6–36.8; O2SAT 96–99
--- NOTE | ~2024-06-21 | CT_ITS ---
CT abdomen pelvis w con Ordering provider: Marilyn Denis MD History: 68 years Male with . epigastric/luq tenderness . Comparison: June 10, 2024 Technique: CT abdomen and pelvis with IV and without oral contrast. Automated exposure control and it erative reconstruction technique were employed. The dose-length product was 703.19 mGy-cm. 100 mL Omn ipaque 350 was given IV. Findings: VISUALIZED LOWER CHEST: Dependent atelectatic changes. Underlying emphysematous changes. UPPER ABDOMINAL ORGANS: Liver: Tiny hypodensity in the left and right lobe most likely tiny cysts. Gallbladder: Normal. Spleen: Normal. Stomach/duodenum: Small sliding hiatus hernia. Thickened wall of the pyloric area. Clinical correlati on advised. Pancreas: Normal. Adrenals: Normal. Kidneys: Normal. PELVIC ORGANS: The bladder is underfilled with thickened wall. Further evaluation for cystitis or in filtrative process is advised. BOWEL AND MESENTERY: Colon: No evidence of diverticulitis. Normal appendix. Small Bowel: Normal. No obstruction. Peritoneum/mesentery: No free air or free fluid. No mesenteric lymphadenopathy. RETROPERITONEUM: Mild atheromatous disease of the abdominal aorta. 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 No retroperitoneal lymphadenopathy. Small para-aortic lymph nodes are noted the largest measures 1 cm. MUSCULOSKELETAL: Superficial soft tissues: The superficial soft tissues are normal. Bones: Age appropriate degenerative changes of the spine. IMPRESSION: 1. Sliding hiatus hernia. Thickened wall of the pyloric area. Clinical evaluation advised. 2. Markedly thickened wall of the urinary bladder wall. Further evaluation advised. 3. Tiny cysts in the liver Reviewed, dictated and finalized at location A. IMPRESSION: 1. Sliding hiatus hernia. Thickened wall of the pyloric area. Clinical evaluat ion advised. 2. Markedly thickened wall of the urinary bladder wall. Further evaluation adv ised. 3. Tiny cysts in the liver
--- NOTE | 2024-06-21 15:56 | ED.ABDPAIN ---
HPI - Abdominal Pain General Chief Complaint: Abdominal Pain Stated Complaint: abd pain Time Seen by Provider: 06/21/24 15:10 History of Present Illness HPI narrative: 60-year-old male presenting with abdominal pain. He was admitted last week with anemia, found is severe peptic ulcer disease as well as iron deficiency. He received several transfusions and was discharged on Protonix and iron supplements. States that he has only been taking his citalopram as he was not aware with the other medicines were for. States that for the last couple of days he has had severe epigastric pain associated with some nausea. States he is able to keep down chicken noodle soup and some aches. No vomiting, no hematemesis, no melena or hematochezia. No further complaints. Related Data Allergies Allergy/AdvReac Type Severity Reaction Status Date / Time penicillin G Allergy Unknown Unknown Verified 06/21/24 14:53 NSAIDS (Non-Steroidal AdvReac Unknown gi bleed Verified 06/21/24 14:53 Anti-Inflamma Review of Systems Review of Systems: All systems reviewed & are unremarkable except as noted in HPI and below PMFSH Past Medical History Medical History Abnormal CT scan, stomach Adenomatous colon polyp COPD (chronic obstructive pulmonary disease) Gastric ulcer Infestation by bed bug Family History Family History Other Unknown family medical history Social History Social History Smoking status: Current every day smoker Tobacco type: cigarettes Additional smoking assessment comments: unsure how much Alcohol intake: former Substance use: never Substance use type: does not use Do You Feel Safe in your Home?: Yes Lack of Transportation: No Lack of Food: Never True Current Housing: I Have Housing Concerned About Future Housing: No Difficulty Paying Gas/Electric Bills: No Difficulty Paying for Meds: No Currently Unemployed: No Education: High School Diploma/GED Difficulty w/ Childcare or Family Care: No Spiritual care concerns: No Exam Narrative: GENERAL: Disheveled, appears chronically unwell, cooperative HEAD: Normocephalic, atraumatic. EYES: PERRLA and EOMI. ENT: Mucous membranes moist. NECK: Supple. CHEST: Clear to auscultation. No respiratory distress. HEART: Regular rate and rhythm ABDOMEN: Soft, tender in the epigastrium and left upper quadrant without guarding or rebound EXTREMITIES: Normal range of motion SKIN: Warm, dry, numerous healing scabs on bilateral upper and lower extremities NEURO: No focal deficits. Alert and oriented x3. PSYCH: Normal mood and affect. Course Vital Signs Vital signs: Vital Signs Pulse Rate 85 06/21/24 14:58 Respiratory Rate 20 06/21/24 14:58 Blood Pressure 145/81 H 06/21/24 14:58 Pulse Oximetry 99 06/21/24 14:58 Oxygen Delivery Room Air 06/21/24 14:58 Temperature 97.8 F 06/21/24 20:20 Pulse Rate 79 06/21/24 20:20 Respiratory Rate 15 06/21/24 20:20 Blood Pressure 104/69 06/21/24 20:20 Pulse Oximetry 99 06/21/24 20:20 Oxygen Delivery Room Air 06/21/24 14:58 MDM - Abdominal Pain MDM Narrative Medical decision making narrative: 68-year-old male presenting with abdominal pain. Vitals stable. Exam remarkable for the above. Blood work is stable from prior. Hemoglobin is 9.2. Lipase is normal. UA is unremarkable. CT abdomen pelvis shows no acute abnormalities. On re-evaluation, the patient states that he is feeling much improved and he would like some ice water. He has not been taking any of the medications that he was sent home on as he was unsure what they were. We went through his medication list and he was advised to take his Protonix as prescribed for his peptic ulcer disease. Feel he is safe for outpatient managemen
[2024-06-21] MEDS: ONDANSETRON INJ 4 MG/2 ML VIAL IV PUSH (16:03)
[2024-06-21] MEDS: PANTOPRAZOLE SODIUM IV 40 MG VIAL IV PUSH (16:04)
[2024-06-21 17:27] LABS: Basophils Percent Auto 0.5 % (0.2-1.2); Eosinophils Absolute Auto 0.1 K/mm3 (0-0.3); Eosinophils Percent Auto 1.2 % (0-4.4); Hematocrit 28.6 % (42.0-52.0); Hemoglobin 9.2 g/dL (14.0-18.0); Immature Granulocyte Absolute 0.02 K/mm3 (0.00-0.031); Immature Granulocyte Percent A 0.4 % (0-0.5); Lymphocytes Percent Auto 23.1 % (18.3-44.2); Mean Corpuscular HGB Conc 32.2 g/dl (32-36); Mean Corpuscular Hemoglobin 29.9 pg (26-34); Mean Corpuscular Volume 92.9 fl (80-100); Mean Platelet Volume 11.6 fl (7.4-10.4); Monocytes Absolute Auto 0.5 K/mm3 (0.1-0.6); Monocytes Percent Auto 8.2 % (2.6-8.5); Neutrophils Absolute Auto 3.8 K/mm3 (1.3-6.7); Neutrophils Percent Auto 66.6 % (45.5-73.1); Platelet Count Result 277 k/mm3 (150-375); Red Blood Count 3.08 M/mm3 (4.6-6.20); Red Cell Distribution Width 16.9 % (11.5-14.5); White Blood Count 5.6 K/mm3 (4.5-10.0)
[2024-06-21 17:36] LABS: Alanine Aminotransferase 11 U/L (6-50); Albumin Level 3.3 g/dL (3.5-5.1); Alkaline Phosphatase 106 U/L (38-126); Anion Gap 6 mmol/L (4-12); Aspartate Amino Transferase 27 U/L (17-59); Bilirubin,Total 0.6 mg/dL (0.2-1.3); Blood Urea Nitrogen 13 mg/dL (9-20); Calcium 9.4 mg/dL (8.4-10.2); Carbon Dioxide 24 mmol/L (22-30); Chloride 104 mmol/L (98-107); Estimated CRCL calculation 90 ml/min; Estimated Glomerular Filt Rate > 60; Glucose 106 mg/dL (65-110); Lipase 61 U/L (23-300); Potassium 3.7 mmol/L (3.4-5.0); Sodium 134 mmol/L (137-145)
[2024-06-21 19:01] LABS: Add Urine Microscopic? YES; Appearance Urine Clear (Clear); Bacteria Urine None Seen /hpf; Bilirubin Urine Negative (Negative); Blood Urine Negative (Negative); Color Urine Yellow (Yellow); Glucose Urine UA Negative (Negative); Ketones Urine Negative (Negative); Leukocyte Esterase Ur Trace LEU/UL (Negative); Nitrate Urine Negative (Negative); Non Pathogenic Casts 0-2; Protein Urine Negative (Negative); RBC Urine 0-2 /hpf (0-2); Specific Grav Ur > 1.045 (1.001-1.035); Squamous Epithelial Cell Urine None Seen /hpf (Few); WBC Urine 0-5 /hpf (0-3)
== END 2024-06-21 21:25 | disposition home or self-care (01) ==
PROVIDERS: Student in an Organized Health Care Education/Training Program; Emergency Provider Emergency Medicine
DX: R10.13 Epigastric pain (principal); J44.9 Chronic obstructive pulmonary disease, unspecified; K27.9 Peptic ulcer, site unspecified, unspecified as acute or chronic, without hemorrhage or perforation; D64.9 Anemia, unspecified; F17.210 Nicotine dependence, cigarettes, uncomplicated; Z86.0101 Personal history of adenomatous and serrated colon polyps; K44.9 Diaphragmatic hernia without obstruction or gangrene; R93.41 Abnormal radiologic findings on diagnostic imaging of renal pelvis, ureter, or bladder
CPT/HCPCS: 36415; 74177; 80053; 81001; 83690; 85025; 96374; 96375; 99284; J2405; J2470; Q9967